=== PATIENT | male | born 1950 | race Caucasian/White ===

== ENCOUNTER → 2018-10-19 15:39 | Outpatient (CLI) | payer OTHER, SELFPAY ==
[2018-10-19 16:24] LABS: BUN Creatinine Ratio 22.5 (6-22); Blood Urea Nitrogen 18 mg/dL (9-20); Calcium 9.7 mg/dL (8.4-10.2); Carbon Dioxide 26 mmol/L (22-32); Chloride 101 mmol/L (98-107); Estimated Glomerular Filt Rate > 60.0 mL/min (>60); Glucose 100 mg/dL (80-110); HEMOLYSIS < 15 (0-50); Potassium 4.4 mmol/L (3.4-5.1); Sodium 138 mmol/L (137-145)
[2018-10-19 16:27] LABS: Hematocrit 39.6 % (41-53); Hemoglobin 13.6 g/dL (13.5-17.5); Mean Corpuscular HGB Conc 34.3 % (30-36); Mean Corpuscular Hemoglobin 30.5 PG (26-34); Mean Corpuscular Volume 88.9 fL (80-100); Platelet Count 307 X10^3/uL (150-400); Red Blood Cell Count 4.45 X10^6/uL (4.5-5.9); Red Cell Distribution Width 13.1 % (11.6-14.8)
[2018-10-19 16:41] LABS: Vitamin D 25 Hydroxy (D3) 17.9 ng/mL (30.0-100.0)
[2018-10-19 16:55] LABS: Prostate Specific Antigen 1.17 ng/mL (0.10-4.00)
== END ==
PROVIDERS: Family Provider Family Medicine; PCP Student in an Organized Health Care Education/Training Program; Visit Provider Student in an Organized Health Care Education/Training Program
DX: R97.20 Elevated prostate specific antigen [PSA] (principal); I10 Essential (primary) hypertension; E55.9 Vitamin D deficiency, unspecified; D64.9 Anemia, unspecified
CPT/HCPCS: 36415; 80048; 82306; 84153; 85027

== ENCOUNTER → 2018-10-24 08:20 | Outpatient (CLI) | payer OTHER, SELFPAY ==
--- NOTE | 2018-10-24 08:25 | DI.US.S_ITS ---
PROCEDURE: US ABD AORTA ANEURYSM SCREEN INDICATIONS: ABDOMINAL AORTIC ANEURYSM SCREENING IN FORMER SMOKER TECHNIQUE: Real time scanning was performed of the aorta and iliac arteries, with image documentation. COMPARISON: None. FINDINGS: Aorta: Proximal aortic diameter measures 2.2 cm. Mid-aorta measures 1.9 cm. Distal aortic diameter is 2.0 cm. Iliac arteries: Right common iliac artery measures 1.2 cm. Left common iliac artery measures 1.2 cm. IMPRESSION: Normal examination. No aneurysm found. Dictated by: Jonas Mahoney M.D. on 10/24/2018 at 8:49 Approved by: Jonas Mahoney M.D. on 10/24/2018 at 8:50
== END ==
PROVIDERS: PCP Student in an Organized Health Care Education/Training Program; Visit Provider Student in an Organized Health Care Education/Training Program
DX: Z13.6 Encounter for screening for cardiovascular disorders (principal); Z87.891 Personal history of nicotine dependence
CPT/HCPCS: 76706

== ENCOUNTER → 2019-07-15 07:52 | Outpatient (CLI) | payer OTHER, SELFPAY ==
--- NOTE | 2019-07-15 07:53 | DI.US.S_ITS ---
PROCEDURE: US CAROTID DOPPLER BI INDICATIONS: ameurosis fugax TECHNIQUE: Color and pulse Doppler interrogation was performed of both carotid systems, with image documentation and velocity measurements. COMPARISON: None. FINDINGS: Stenosis calculations are based on SRU (Society of Radi[employer] in Ultras[employer]) criteria. Right side: Brachial blood pressure: 153/82 mm Hg. Common carotid artery peak systolic velocity: 115 cm/sec. Internal carotid artery peak systolic velocity: 106 cm/sec. Internal carotid artery end diastolic velocity: 36 cm/sec. External carotid artery peak systolic velocity: 102 cm/sec. ICA/CCA peak systolic ratio: 0.9. Perry scale imaging description: Normal Percent internal carotid artery stenosis: No significant stenoses. Vertebral artery: Flow direction is antegrade. Left side: Brachial blood pressure: 142/71 mm Hg. Common carotid artery peak systolic velocity: 101 cm/sec. Internal carotid artery peak systolic velocity: 80 cm/sec. Internal carotid artery end diastolic velocity: 32 cm/sec. External carotid artery peak systolic velocity: 82 cm/sec. ICA/CCA peak systolic ratio: 0.8. Perry scale imaging description: Normal Percent internal carotid artery stenosis: No significant stenoses. Vertebral artery: Flow direction is antegrade. Incidentally noted is a predominance cystic mass in the left thyroid lobe measuring 1.3 x 0.7 x 0.9 cm. IMPRESSION: 1. No significant internal carotid artery stenosis. 2. A complex cyst in the left thyroid measuring 1.3 x 0.7 x 0.9 cm. Dictated by: Gilmar Mercado M.D. on 07/15/2019 at 13:58 Approved by: Gilmar Mercado M.D. on 07/15/2019 at 14:03
== END ==
PROVIDERS: PCP Student in an Organized Health Care Education/Training Program; Visit Provider Student in an Organized Health Care Education/Training Program
DX: G45.3 Amaurosis fugax (principal); E04.1 Nontoxic single thyroid nodule
CPT/HCPCS: 93880

== ENCOUNTER 2019-07-26 12:24 | Emergency (ER) | payer OTHER, SELFPAY ==
[2019-07-26] VITALS (8 sets, daily range): BP systolic 124–158; BP diastolic 71–81; PULSE 72–95; RESP 14–18; TEMP 36.4; O2SAT 97–99
--- NOTE | 2019-07-26 12:31 | DI.CT.S_ITS ---
PROCEDURE: CT HEAD/BRAIN WO CON INDICATIONS: Progressive forgetfullness, change in gait, TAI x15 days TECHNIQUE: Noncontrast 4.5 mm thick angled axial sections acquired from the foramen magnum to the vertex, with coronal and sagittal reformats. For radiation dose reduction, the following was used: automated exposure control, adjustment of mA and/or kV according to patient size. COMPARISON: [facility], , CAROTID DOPPLER BI, 07/15/2019, 8:25. FINDINGS: Image quality: Excellent. CSF spaces: There is moderate to prominent hydrocephalus. Basal cisterns are patent. No extra-axial fluid collections. Brain: There is a poorly defined mass seen, which is centered within the posterior right frontal lobe, which measures approximately 4 cm transversely by 2.9 cm AP, with a craniocaudal extent of 3 cm. Surrounding brain edema can be seen. There is cerebral volume loss for age, with resultant ventricular and sulcal prominence. There are periventricular and deep white matter chronic small vessel ischemic changes. There is intracranial internal carotid artery atherosclerosis. Skull and face: Calvarium and visualized facial bones appear intact, without suspicious lesions. Sinuses: Visualized sinuses and mastoids are clear. IMPRESSION: There is a 4 cm mass centered within the posterior right frontal lobe near the midline, with associated brain edema. There is moderate to prominent hydrocephalus. An urgent neurosurgical consultation is recommended. Note: Findings and recommendations discussed by telephone with NARENDRA Hoover at 12:48 PM Hanson time on July 26, 2019. Dictated by: Ralph Frank M.D. on 07/26/2019 at 11:44 Approved by: Ralph Frank M.D. on 07/26/2019 at 11:49
--- NOTE | 2019-07-26 12:49 | ED_ITS ---
HPI - Neuro Symptoms/Deficit <Will Betancourt NARENDRA - Last Filed: 07/26/19 12:50> General Chief Complaint: Neuro Symptoms/Deficit Stated Complaint: headaches,cannot walk steady,changes in speech Time Seen by Provider: 07/26/19 12:49 Source: patient and family Mode of arrival: Ambulatory History of Present Illness On Anticoagulants: No Related Data Home Medications Medication Instructions Recorded Confirmed lisinopril 10 mg PO DAILY 07/26/19 07/26/19 Previous Rx's Medication Instructions Recorded mometasone 0.1 % topical cream 1 applictn TOP DAILY 21 Days #45 07/12/19 gram dexamethasone 4 mg PO QID #20 tab 07/26/19 Allergies Allergy/AdvReac Type Severity Reaction Status Date / Time cat dander [CAT DANDER] Allergy Intermediate Verified 07/26/19 11:40 <Mirta Magaña DO - Last Filed: 07/26/19 18:36> General Source: patient and family Mode of arrival: Ambulatory Limitations: no limitations History of Present Illness HPI Narrative: This is a 68-year-old who comes to the emergency department with 2-3 weeks of headaches that are worse when he stands up. Patient and family have noted that his gait has got sort of wider and more sharp fully. They've also noticed that he has to speak or starch for his words and be more deliberate in his speech. Patient states that he has noticed sometimes some scintillating changes in his vision maybe like an aura almost is how he describes it with his headaches. He has not noticed any loss of vision. Patient has intermittently had nausea particularly with severe headache but no vomiting. He has not appreciated any numbness or tingling. 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 They've noticed it more with his gait in his family has also noticed. Patient has not any chest pain or shortness of breath. No loss of bowel or bladder control. Patient does take medication for hypertension but no other major medical issues. His primary care is Dr. Minor. Patient is accompanied by his daughters and . One of his daughters is an orthopedic surgeon. <DO Shira Collins Last Filed: 07/26/19 18:36> Review of Systems ROS Unobtainable: All systems reviewed & are unremarkable except as noted in HPI and below Patient History [facility] - Last Filed: 07/26/19 12:50> Medical History Colon polyps (Chronic) Hypertension (Chronic) Seasonal allergies (Chronic) Tinnitus (Chronic) Family History Sister Age: 75 Early onset Alzheimer's dementia without behavioral disturbance Father No problems noted. Grandfather No problems noted. Grandmother Diabetes mellitus Mother Cancer Grandfather No problems noted. Grandmother No problems noted. Social History Smoking Status: Never smoker alcohol intake: current substance use type: does not use Smoking Status: Never smoker alcohol intake frequency: a few times a month Alcohol type: wine Substance Use Type: does not use Exam <[facility] - Last Filed: 07/26/19 12:50> Initial Vital Signs Initial Vital Signs: Vital Signs Temperature 97.6 F 07/26/19 12:25 Pulse Rate 88 07/26/19 12:25 Respiratory Rate 18 07/26/19 12:25 Blood Pressure 158/75 H 07/26/19 12:25 Pulse Oximetry 98 07/26/19 12:25 <Mirta Magaña DO - Last Filed: 07/26/19 18:36> Narrative Exam Narrative: GEN: well nourished, well appearing male, alert and oriented x 3, patient appears to be in mild distress. HEENT: Atraumatic, pupils are equal round reactive to light, extraocular movements are intact, nares are clear, TMs are clear with no fluid, there is no conjunctival pallor. Throat is clear without any exudates, erythema, tonsillar enlargement or uvular deviation HEART: Regular rate and rhythm without murmur, clicks, rubs. LUNGS:Lungs clear to auscultation, no wheezes, rales, crackles, chest moves symmetrically ABD:bowel sounds normal, soft, non-tender, no guarding, rebound, rigidity, no masses noted, no hepatosplenomegaly :No CVA tenderness. MSCL: Non-tender, no muscle atrophy, muscles strength 5/5 upper and lower extremities, full range of motion. NEURO:CN 2-12 intact, sensation normal, reflexes 2/4 upper and lower extremities. finger nose finger test normal, heel murphy test normal. SKIN: No rashes. No skin changes. Initial Vital Signs Initial Vital Signs: Vital Signs Temperature 97.6 F 07/26/19 12:25 Pulse Rate 88 07/26/19 12:25 Respiratory Rate 18 07/26/19 12:25 Blood Pressure 158/75 H 07/26/19 12:25 Pulse Oximetry 98 07/26/19 12:25 Course <ANOOP HooverP - Last Filed: 07/26/19 12:50> Course Course Narrative: Dr. Frank, radiologist, called to inform the CT finding of b rain mass and prominent hydrocephalus. Neurosurgeon evaluation in needed. Orders Ordered: ED Orders 07/26/19 12:31 CT head/brain wo con Stat 07/26/19 13:12 Complete Blood Count AUTO DIFF Stat Comprehensive Metabolic Panel Stat Lipase Stat Partial Thromboplastin Time Stat Prothrombin Time INR Stat 07/26/19 13:29 MR head/brain wo/w con Stat 07/26/19 13:46 Urine Microscopic Stat Dexamethasone (Decadron) 4 mg IV Q6H SMITA Discontinued Medications Dexamethasone (Decadron) 10 mg IV NOW ONE Stop: 07/26/19 13:41 Last Admin: 07/26/19 13:53 Dose: 10 mg Documented by: BONILLA Sodium Chloride (Normal Saline 0.9%) 1,000 mls @ 1,000 mls/hr IV BOLUS ONE Stop: 07/26/19 14:04 Last Infusion: 07/26/19 16:28 Dose: 250 mls/hr Documented by: Infusion: 07/26/19 15:00 Dose: 0 mls/hr Documented by: Admin: 07/26/19 13:14 Dose: 250 mls/hr Documented by: BONILLA Levetiracetam 1,000 mg/ Sodium (Chloride) 110 mls @ 440 mls/hr IV NOW ONE Stop: 07/26/19 17:49 Last Admin: 07/26/19 18:12 Dose: 440 mls/hr Documented by: BONILLA Morphine Sulfate (Morphine) 2 mg IV NOW ONE Stop: 07/26/19 16:19 Last Admin: 07/26/19 16:27 Dose: 2 mg Documented by: BONILLA Ondansetron HCl (Zofran) 4 mg IV NOW ONE Stop: 07/26/19 13:06 Last Admin: 07/26/19 13:14 Dose: 4 mg Documented by: BONILLA Ondansetron HCl (Zofran) 4 mg IV NOW ONE Stop: 07/26/19 16:19 Last Admin: 07/26/19 16:27 Dose: 4 mg Documented by: BONILLA Vital Signs Vital signs: Vital Signs - 8 hr 07/26/19 12:25 07/26/19 13:00 07/26/19 13:30 Temperature 97.6 F Pulse Rate 88 72 95 H Respiratory Rate 18 18 18 Blood Pressure 158/75 H Blood Pressure [Right Arm] 143/71 H 147/71 H Pulse Oximetry 98 98 98 07/26/19 14:07 07/26/19 15:32 07/26/19 16:30 Temperature Pulse Rate 78 78 87 Respiratory Rate 17 18 18 Blood Pressure Blood Pressure [Right Arm] 134/81 124/78 148/75 H Pulse Oximetry 99 98 97 07/26/19 17:00 07/26/19 18:16 Temperature Pulse Rate 91 H 80 Respiratory Rate 18 14 Blood Pressure Blood Pressure [Right Arm] 153/71 H 128/78 Pulse Oximetry 97 99 <Mirta Magaña, - Last Filed: 07/26/19 18:36> Orders Ordered: ED Orders 07/26/19 12:31 CT head/brain wo con Stat 07/26/19 13:12 Complete Blood Count AUTO DIFF Stat Comprehensive Metabolic Panel Stat Lipase Stat Partial Thromboplastin Time Stat Prothrombin Time INR Stat 07/26/19 13:29 MR head/brain wo/w con Stat 07/26/19 13:46 Urine Microscopic Stat Dexamethasone (Decadron) 4 mg IV Q6H SMITA Discontinued Medications Dexamethasone (Decadron) 10 mg IV NOW ONE Stop: 07/26/19 13:41 Last Admin: 07/26/19 13:53 Dose: 10 mg Documented by: BONILLA Sodium Chloride (Normal Saline 0.9%) 1,000 mls @ 1,000 mls/hr IV BOLUS ONE Stop: 07/26/19 14:04 Last Infusion: 07/26/19 16:28 Dose: 250 mls/hr Documented by: Infusion: 07/26/19 15:00 Dose: 0 mls/hr Documented by: Admin: 07/26/19 13:14 Dose: 250 mls/hr Documented by: BONILLA Levetiracetam 1,000 mg/ Sodium (Chloride) 110 mls @ 440 mls/hr IV NOW ONE Stop: 07/26/19 17:49 Last Admin: 07/26/19 18:12 Dose: 440 mls/hr Documented by: BONILLA Morphine Sulfate (Morphine) 2 mg IV NOW ONE Stop: 07/26/19 16:19 Last Admin: 07/26/19 16:27 Dose: 2 mg Documented by: BONILLA Ondansetron HCl (Zofran) 4 mg IV NOW ONE Stop: 07/26/19 13:06 Last Admin: 07/26/19 13:14 Dose: 4 mg Documented by: BONILLA Ondansetron HCl (Zofran) 4 mg IV NOW ONE Stop: 07/26/19 16:19 Last Admin: 07/26/19 16:27 Dose: 4 mg Documented by: BONILLA Vital Signs Vital signs: Vital Signs - 8 hr 07/26/19 12:25 07/26/19 13:00 07/26/19 13:30 Temperature 97.6 F Pulse Rate 88 72 95 H Respiratory Rate 18 18 18 Blood Pressure 158/75 H Blood Pressure [Right Arm] 143/71 H 147/71 H Pulse Oximetry 98 98 98 07/26/19 14:07 07/26/19 15:32 07/26/19 16:30 Temperature Pulse Rate 78 78 87 Respiratory Rate 17 18 18 Blood Pressure Blood Pressure [Right Arm] 134/81 124/78 148/75 H Pulse Oximetry 99 98 97 07/26/19 17:00 07/26/19 18:16 Temperature Pulse Rate 91 H 80 Respiratory Rate 18 14 Blood Pressure Blood Pressure [Right Arm] 153/71 H 128/78 Pulse Oximetry 97 99 MDM - Neuro Symptoms/Deficit <NARENDRA Hoover - Last Filed: 07/26/19 12:50> Lab Data Result diagrams: 07/26/19 13:12 07/26/19 13:12 Labs: Lab Results 07/26/19 07/26/19 07/26/19 Range/Units 13:12 13:12 13:12 WBC 7.7 (4.5-11.0) X10^3/uL RBC 4.18 L (4.5-5.9) X10^6/uL Hgb 12.7 L (13.5-17.5) g/dL Hct 37.1 L (41-53) % MCV 88.7 (80-100) fL MCH 30.4 (26-34) PG MCHC 34.3 (30-36) % RDW 12.8 (11.6-14.8) % Plt Count 332 (150-400) X10^3/uL Neut % (Auto) 73.3 (50-75) % Lymph % (Auto) 17.6 L (25-40) % [place] % (Auto) 6.7 (3-14) % Eos % (Auto) 1.8 L (2-4) % Baso % (Auto) 0.6 (0-2) % Neut # (Auto) 5600 (3900-2380) /uL Lymph # (Auto) 1300 (2343-6297) /uL [place] # (Auto) 500 (0-900) /uL Eos # (Auto) 100 (0-450) /uL Baso # (Auto) 0 (0-100) /uL PT 12.3 (10.1-12.7) SECONDS INR 1.1 (0.9-1.3) APTT 33 (26.4-36.2) SECONDS Sodium 141 (137-145) mmol/L Potassium 4.8 (3.4-5.1) mmol/L Chloride 103 (98-107) mmol/L Carbon Dioxide 28 (22-32) mmol/L BUN 23 H (9-20) mg/dL Creatinine 0.80 (0.66-1.25) mg/dL Estimated GFR > 60.0 (>60) mL/min BUN/Creatinine Ratio 28.8 H (6-22) Glucose 111 H (80-110) mg/dL Calcium 10.0 (8.4-10.2) mg/dL Total Bilirubin 0.6 (0.2-1.3) mg/dL AST 26 (17-59) IU/L ALT 17 (<50) IU/L Alkaline Phosphatase 73 (38-126) U/L Total Protein 7.3 (6.3-8.2) g/dL Albumin 4.3 (3.5-5.0) g/dL Globulin 3.0 (1.7-4.1) g/dL Albumin/Globulin Ratio 1.4 (1.0-2.8) Lipase 47 (23-300) U/L Urine RBC (0-5/HPF) Urine WBC (0-5/HPF) Ur Squamous Epith Cells (0-5/HPF) Urine Bacteria (None) Urine Mucus (Negative) Ur Culture Indicated? 07/26/19 Range/Units 13:46 WBC (4.5-11.0) X10^3/uL RBC (4.5-5.9) X10^6/uL Hgb (13.5-17.5) g/dL Hct (41-53) % MCV (80-100) fL MCH (26-34) PG MCHC (30-36) % RDW (11.6-14.8) % Plt Count (150-400) X10^3/uL Neut % (Auto) (50-75) % Lymph % (Auto) (25-40) % [place] % (Auto) (3-14) % Eos % (Auto) (2-4) % Baso % (Auto) (0-2) % Neut # (Auto) (6309-9237) /uL Lymph # (Auto) (4678-1950) /uL [place] # (Auto) (0-900) /uL Eos # (Auto) (0-450) /uL Baso # (Auto) (0-100) /uL PT (10.1-12.7) SECONDS INR (0.9-1.3) APTT (26.4-36.2) SECONDS Sodium (137-145) mmol/L Potassium (3.4-5.1) mmol/L Chloride (98-107) mmol/L Carbon Dioxide (22-32) mmol/L BUN (9-20) mg/dL Creatinine (0.66-1.25) mg/dL Estimated GFR (>60) mL/min BUN/Creatinine Ratio (6-22) Glucose (80-110) mg/dL Calcium (8.4-10.2) mg/dL Total Bilirubin (0.2-1.3) mg/dL AST (17-59) IU/L ALT (<50) IU/L Alkaline Phosphatase (38-126) U/L Total Protein (6.3-8.2) g/dL Albumin (3.5-5.0) g/dL Globulin (1.7-4.1) g/dL Albumin/Globulin Ratio (1.0-2.8) Lipase (23-300) U/L Urine RBC 1-5/hpf (0-5/HPF) Urine WBC 0-1/hpf (0-5/HPF) Ur Squamous Epith Cells 1-5 /hpf (0-5/HPF) Urine Bacteria None seen (None) Urine Mucus 1+ H (Negative) Ur Culture Indicated? Cult not indicated Urine Dip Bedside Urine Glucose Negative Bedside Urine Bilirubin + 1 Bedside Urine Ketone - Negative Urine Specific [place] 1.020 Bedside Urine Occult Blood - Negative Bedside Urine pH 6.0 Bedside Urine Protein +/- 15 Bedside Urine Urobilinogen +/- 1mg Bedside Urine Nitrite - Negative Bedside Urine Leukocytes - Negative Esterase <Mirta Magaña, DO - Last Filed: 07/26/19 18:36> Lab Data Attestation: I reviewed the patient's lab results. Labs: Lab Results 07/26/19 07/26/19 07/26/19 Range/Units 13:12 13:12 13:12 WBC 7.7 (4.5-11.0) X10^3/uL RBC 4.18 L (4.5-5.9) X10^6/uL Hgb 12.7 L (13.5-17.5) g/dL Hct 37.1 L (41-53) % MCV 88.7 (80-100) fL MCH 30.4 (26-34) PG MCHC 34.3 (30-36) % RDW 12.8 (11.6-14.8) % Plt Count 332 (150-400) X10^3/uL Neut % (Auto) 73.3 (50-75) % Lymph % (Auto) 17.6 L (25-40) % [place] % (Auto) 6.7 (3-14) % Eos % (Auto) 1.8 L (2-4) % Baso % (Auto) 0.6 (0-2) % Neut # (Auto) 5600 (1364-3591) /uL Lymph # (Auto) 1300 (5923-4982) /uL [place] # (Auto) 500 (0-900) /uL Eos # (Auto) 100 (0-450) /uL Baso # (Auto) 0 (0-100) /uL PT 12.3 (10.1-12.7) SECONDS INR 1.1 (0.9-1.3) APTT 33 (26.4-36.2) SECONDS Sodium 141 (137-145) mmol/L Potassium 4.8 (3.4-5.1) mmol/L Chloride 103 (98-107) mmol/L Carbon Dioxide 28 (22-32) mmol/L BUN 23 H (9-20) mg/dL Creatinine 0.80 (0.66-1.25) mg/dL Estimated GFR > 60.0 (>60) mL/min BUN/Creatinine Ratio 28.8 H (6-22) Glucose 111 H (80-110) mg/dL Calcium 10.0 (8.4-10.2) mg/dL Total Bilirubin 0.6 (0.2-1.3) mg/dL AST 26 (17-59) IU/L ALT 17 (<50) IU/L Alkaline Phosphatase 73 (38-126) U/L Total Protein 7.3 (6.3-8.2) g/dL Albumin 4.3 (3.5-5.0) g/dL Globulin 3.0 (1.7-4.1) g/dL Albumin/Globulin Ratio 1.4 (1.0-2.8) Lipase 47 (23-300) U/L Urine RBC (0-5/HPF) Urine WBC (0-5/HPF) Ur Squamous Epith Cells (0-5/HPF) Urine Bacteria (None) Urine Mucus (Negative) Ur Culture Indicated? 07/26/19 Range/Units 13:46 WBC (4.5-11.0) X10^3/uL RBC (4.5-5.9) X10^6/uL Hgb (13.5-17.5) g/dL Hct (41-53) % MCV (80-100) fL MCH (26-34) PG MCHC (30-36) % RDW (11.6-14.8) % Plt Count (150-400) X10^3/uL Neut % (Auto) (50-75) % Lymph % (Auto) (25-40) % [place] % (Auto) (3-14) % Eos % (Auto) (2-4) % Baso % (Auto) (0-2) % Neut # (Auto) (4854-3363) /uL Lymph # (Auto) (0462-3210) /uL [place] # (Auto) (0-900) /uL Eos # (Auto) (0-450) /uL Baso # (Auto) (0-100) /uL PT (10.1-12.7) SECONDS INR (0.9-1.3) APTT (26.4-36.2) SECONDS Sodium (137-145) mmol/L Potassium (3.4-5.1) mmol/L Chloride (98-107) mmol/L Carbon Dioxide (22-32) mmol/L BUN (9-20) mg/dL Creatinine (0.66-1.25) mg/dL Estimated GFR (>60) mL/min BUN/Creatinine Ratio (6-22) Glucose (80-110) mg/dL Calcium (8.4-10.2) mg/dL Total Bilirubin (0.2-1.3) mg/dL AST (17-59) IU/L ALT (<50) IU/L Alkaline Phosphatase (38-126) U/L Total Protein (6.3-8.2) g/dL Albumin (3.5-5.0) g/dL Globulin (1.7-4.1) g/dL Albumin/Globulin Ratio (1.0-2.8) Lipase (23-300) U/L Urine RBC 1-5/hpf (0-5/HPF) Urine WBC 0-1/hpf (0-5/HPF) Ur Squamous Epith Cells 1-5 /hpf (0-5/HPF) Urine Bacteria None seen (None) Urine Mucus 1+ H (Negative) Ur Culture Indicated? Cult not indicated Urine Dip Bedside Urine Glucose Negative Bedside Urine Bilirubin + 1 Bedside Urine Ketone - Negative Urine Specific [place] 1.020 Bedside Urine Occult Blood - Negative Bedside Urine pH 6.0 Bedside Urine Protein +/- 15 Bedside Urine Urobilinogen +/- 1mg Bedside Urine Nitrite - Negative Bedside Urine Leukocytes - Negative Esterase Imaging Data CT scan - head: Radiologist's impression: Norm Mueller 68 M [address] [address] [address] Scan Report Signed Patient: Norm Mueller TMR#: [id number] : [id number]:[id number] Age/Sex: 68 / MDate of Service: 07/26/19 Loc: ED Accession Number: [id number] Procedure: CT head/brain wo con Ordering Provider: Will Betancourt PROCEDURE: CT HEAD/BRAIN WO CON INDICATIONS: Progressive forgetfullness, change in gait, TAI x15 days TECHNIQUE: Noncontrast 4.5 mm thick angled axial sections acquired from the foramen magnum to the vertex, with coronal and sagittal reformats. For radiation dose reduction, the following was used: automated exposure control, adjustment of mA and/or kV according to patient size. COMPARISON: [facility], , CAROTID DOPPLER BI, 07/15/2019, 8:25. FINDINGS: Image quality: Excellent. CSF spaces: There is moderate to prominent hydrocephalus. Basal cisterns are patent. No extra-axial fluid collections. Brain: There is a poorly defined mass seen, which is centered within the posterior right frontal lobe, which measures approximately 4 cm transversely by 2.9 cm AP, with a craniocaudal extent of 3 cm. Surrounding brain edema can be seen. There is cerebral volume loss for age, with resultant ventricular and sulcal prominence. There are periventricular and deep white matter chronic small vessel ischemic changes. There is intracranial internal carotid artery atherosclerosis. Skull and face: Calvarium and visualized facial bones appear intact, without suspicious lesions. Sinuses: Visualized sinuses and mastoids are clear. IMPRESSION: There is a 4 cm mass centered within the posterior right frontal lobe near the midline, with associated brain edema. There is moderate to prominent hydrocephalus. An urgent neurosurgical consultation is recommended. Note: Findings and recommendations discussed by telephone with NARENDRA Hoover at 12:48 PM [place] time on July 26, 2019. Dictated by: Ralph Frank M.D. on 07/26/2019 at 11:44 Approved by: Ralph Frank M.D. on 07/26/2019 at 11:49 MRI brain: Radiologist's impression: Norm Mueller 68 M [address] [address] Magnetic Resonance Report Signed Patient: Norm Mueller TMR#: [id number] : [id number]:[id number] Age/Sex: 68 / MDate of Service: 07/26/19 Loc: ED Accession Number: [id number] Procedure: MR head/brain wo/w con Ordering Provider: Mirta Magaña D.O. PROCEDURE: MR HEAD/BRAIN WO/W CON INDICATIONS: mass in brain, symptoms for several weeks TECHNIQUE: Noncontrast axial T1 spin echo, axial T2 fast spin echo, sagittal and axial FLAIR, coronal T2 fast spin echo, axial gradient echo, axial diffusion and ADC through the brain. After the administration of contrast, axial and coronal 3D VIBE or T1 spin echo with fat saturation through the brain. COMPARISON: [facility], CT, CT HEAD/BRAIN WO CON, 07/26/2019, 12:33. FINDINGS: Image quality: Excellent. CSF Spaces: Basal cisterns are patent. No extra-axial fluid collections. Ventricles are mildly enlarged in size and shape, possibly due to the mass effect shifting the posterior aspect of the corpus callosum with mass effect impinging on the superior margin of the cerebral aqueduct. Brain: No midline shift. No intracranial bleeds. There is a malignant appearing mass lesion centered to the right of midline but crossing the midline involving the genuine and inferior margin of the corpus callosum. This mass has significant adjacent vasogenic edema, and the mass itself is estimated to measure approximately 3.1 x 2.8 cm in maximal craniocaudad and AP dimensions, with the transverse dimension of 3.7 cm. No additional lesion is found, and this represents the abnormality seen on CT scanning earlier today No additional area of abnormal intracranial enhancement. The brainstem appears normal. Diffusion-weighted images demonstrate no acute ischemic insults. No chronic ischemic insults. Normal intravascular flow voids are present. Skull and face: Calvarial marrow is normal in signal. Orbits appear normal. Sinuses: Sinuses and mastoids appear clear. IMPRESSION: Moderate-sized malignant appearing heterogeneously enhancing mass centered at and to the right of midline involving the posterior genu and inferior border of the corpus callosum. Mass effect of this structure and adjacent vasogenic edema impinges against the tectal plate and produces narrowing of the superior margin of the cerebral aqueduct. Secondary symmetric bilateral hydrocephalus appears present involving the lateral ventricles and the third ventricle to a mild degree. No transependymal flow of CSF is associated. Overall the appearance is most likely a glioblastoma. Dictated by: Jonas Mahoney M.D. on 07/26/2019 at 15:38 Approved by: Jonas Mahoney M.D. on 07/26/2019 at 15:48 [facility] Narrative Medical decision making narrative: Spoke with Dr. Morales from oncology. He recommends transfer to either [facility] or [facility]. he feels patient would likely benefit from debulking surgery and then being set up with radiation and treatment. He does recommend dexamethasone which patient has already received does not recommend any seizure prophylaxis at this point but it is typically started after surgery for patients with glioblastoma. Discussed with patient the family, discussed MRI as well as head CT results and lab findings and that his CT is suspicous for glioblastoma. Daughter is an orthopedic surgeon and requested images on disk for review at later time with colleagues. Patient family is okay with this. Spoke with [facility] and [facility] did not have beds. We did discuss Oncology is recommendations. Patient has received dexamethasone IV 10 mg with plan for Q 6 hours dexamethasone. [place] does have beds available and Dr. Cardenas is the accepting hospitalist. They did discuss with Neurosurgery and they asked to give 1 g of Keppra prophylactically. They also asked that we have images sent via disc as there's been some difficulty picking up the images. Patient was loaded with Keppra per neurosurgery recommendations. Patient and family would like to consider there options before transfer and have elected to go home at this time. Patient family would like to return home at this time and to make further de cisions about care. They are aware of oncology recommendations and feel they may wish to pursue different options. Given prescription for dexamethasone po Q 6 hours for edema. They plan to return to ER if any new changes in symptoms. Recommended that they can return at any time for evaluation, referral for oncology. They are aware of risks at this time. Patient was given prepack of norco and zofran. Two daughters at bedside along with . Discharge Plan Departure Patient Disposition: Home Clinical Impression: Brain mass, Vasogenic cerebral edema Activity Restrictions/Additional Instructions: You may return at any time for recheck for your symptoms. I recommend that you see oncology as soon as possible below is referral. Take dexamethasone every 6 hours for swelling. Your prescription was sent to [facility] in [place]. You have received an initial dose of Keppra 1 gram IV. You may take pain medication as prescribed, this medication can make you sleepy do not drive, perform hazardous activities or make any major decisions while taking it. I would recommend taking Zofran 1 tablet 20 minutes prior to ingestion of narcotic pain medicine. Return to the ER for new or worsening symptoms, new confusion, new weakness, numbness, tingling, new vision or speech persistent vomiting, increasingly severe headaches, lethargy, or other new or concerning symptoms. Prescriptions: New dexamethasone 4 mg tablet 4 mg PO QID Qty: 20 RF: 0 No Action mometasone 0.1 % cream 1 applictn TOP DAILY 21 Days Qty: 45 RF: 0 lisinopril 10 mg tablet 10 mg PO DAILY RF: 0 Referrals: Marlon Minor MD [Primary Care Provider] - Stacia Gutierres MD [Physician] -
[2019-07-26] MEDS: ONDANSETRON 4 MG/2 ML INJ IV ×2 (13:14→16:27)
[2019-07-26] MEDS: SODIUM CHLORIDE 0.9% 1,000 ML 250 ML IV (13:14)
--- NOTE | 2019-07-26 13:25 | PC.NURSE ---
Pt w/ gradual onset over two weeks of generalized weakness w/o focus, short term memory problems (pt was fully a/o w/ no problems 2 weeks ago.) c/o headache x 2 weeks that is better laying flat. Has been nauseas w / decreased po intake. Appears dry w/ dry mucus membranes and flat veins. Family notes difficulty in following directions. Very supportive family. Two daughters and .
[2019-07-26 13:27] LABS: INR 1.1 (0.9-1.3); Prothrombin Time 12.3 SECONDS (10.1-12.7)
[2019-07-26 13:29] LABS: PTT Partial Thromboplastin Tim 33 SECONDS (26.4-36.2)
--- NOTE | 2019-07-26 13:29 | DI.MRI.S_ITS ---
PROCEDURE: MR HEAD/BRAIN WO/W CON INDICATIONS: mass in brain, symptoms for several weeks TECHNIQUE: Noncontrast axial T1 spin echo, axial T2 fast spin echo, sagittal and axial FLAIR, coronal T2 fast spin echo, axial gradient echo, axial diffusion and ADC through the brain. After the administration of contrast, axial and coronal 3D VIBE or T1 spin echo with fat saturation through the brain. COMPARISON: [facility], CT, CT HEAD/BRAIN WO CON, 07/26/2019, 12:33. FINDINGS: Image quality: Excellent. CSF Spaces: Basal cisterns are patent. No extra-axial fluid collections. Ventricles are mildly enlarged in size and shape, possibly due to the mass effect shifting the posterior aspect of the corpus callosum with mass effect impinging on the superior margin of the cerebral aqueduct. Brain: No midline shift. No intracranial bleeds. There is a malignant appearing mass lesion centered to the right of midline but crossing the midline involving the genuine and inferior margin of the corpus callosum. This mass has significant adjacent vasogenic edema, and the mass itself is estimated to measure approximately 3.1 x 2.8 cm in maximal craniocaudad and AP dimensions, with the transverse dimension of 3.7 cm. No additional lesion is found, and this represents the abnormality seen on CT scanning earlier today No additional area of abnormal intracranial enhancement. The brainstem appears normal. Diffusion-weighted images demonstrate no acute ischemic insults. No chronic ischemic insults. Normal intravascular flow voids are present. Skull and face: Calvarial marrow is normal in signal. Orbits appear normal. Sinuses: Sinuses and mastoids appear clear. IMPRESSION: Moderate-sized malignant appearing heterogeneously enhancing mass centered at and to the right of midline involving the posterior genu and inferior border of the corpus callosum. Mass effect of this structure and adjacent vasogenic edema impinges against the tectal plate and produces narrowing of the superior margin of the cerebral aqueduct. Secondary symmetric bilateral hydrocephalus appears present involving the lateral ventricles and the third ventricle to a mild degree. No transependymal flow of CSF is associated. Overall the appearance is most likely a glioblastoma. Dictated by: Jonas Mahoney M.D. on 07/26/2019 at 15:38 Approved by: Jonas Mahoney M.D. on 07/26/2019 at 15:48
[2019-07-26 13:35] LABS: Add Manual Diff / Slide Review NO; Basophils Absolute Auto 0 /uL (0-100); Basophils Percent Auto 0.6 % (0-2); Eosinophils Absolute Auto 100 /uL (0-450); Eosinophils Percent Auto 1.8 % (2-4); Hematocrit 37.1 % (41-53); Hemoglobin 12.7 g/dL (13.5-17.5); Lymphocytes Absolute Auto 1300 /uL (1100-4500); Lymphocytes Percent Auto 17.6 % (25-40); Mean Corpuscular HGB Conc 34.3 % (30-36); Mean Corpuscular Hemoglobin 30.4 PG (26-34); Mean Corpuscular Volume 88.7 fL (80-100); Monocytes Absolute Auto 500 /uL (0-900); Monocytes Percent Auto 6.7 % (3-14); Neutrophils Absolute Auto 5600 /uL (1500-7000); Neutrophils Percent Auto 73.3 % (50-75); Platelet Count 332 X10^3/uL (150-400); Red Blood Cell Count 4.18 X10^6/uL (4.5-5.9); Red Cell Distribution Width 12.8 % (11.6-14.8); White Blood Cell Count 7.7 X10^3/uL (4.5-11.0)
[2019-07-26 13:41] LABS: Alanine Aminotransferase 17 IU/L (<50); Albumin 4.3 g/dL (3.5-5.0); Albumin Globulin Ratio 1.4 (1.0-2.8); Alkaline Phosphatase 73 U/L (38-126); Aspartate Aminotransferase 26 IU/L (17-59); BUN Creatinine Ratio 28.8 (6-22); Bilirubin Total 0.6 mg/dL (0.2-1.3); Blood Urea Nitrogen 23 mg/dL (9-20); Carbon Dioxide 28 mmol/L (22-32); Chloride 103 mmol/L (98-107); Estimated Glomerular Filt Rate > 60.0 mL/min (>60); Glucose 111 mg/dL (80-110); HEMOLYSIS < 15 (0-50); Lipase 47 U/L (23-300); Potassium 4.8 mmol/L (3.4-5.1); Sodium 141 mmol/L (137-145); Total Protein 7.3 g/dL (6.3-8.2)
[2019-07-26] MEDS: DEXAMETHASONE 10 MG/ML VIAL IV (13:53)
[2019-07-26 15:16] LABS: Bacteria Urine None Seen
[2019-07-26 15:23] LABS: Culture Indicated Urine Cult Not Indicated; Mucus Urine 1+ (Negative); RBC Urine 1-5/HPF (0-5/HPF); Squamous Epithelial Cell Urine 1-5 /HPF (0-5/HPF); WBC Urine 0-1/HPF (0-5/HPF)
[2019-07-26] MEDS: MORPHINE 2 MG/ML INJ IV (16:27)
--- NOTE | 2019-07-26 17:39 | PC.NURSE ---
Pt ambultated to bathroom w/family. Wheelchaired back to room from bathroom.
[2019-07-26] MEDS: levETIRAcetam 1,000 MG in SODIUM CHLORIDE 0.9% 100 ML 440 ML IV (18:12)
--- NOTE | 2019-07-26 18:24 | CM.SWNOTE ---
Discharge Planning/Care Management SNACK FOODS MIXER OPERATOR - Sba Underwriter Assessment Start: 07/26/19 18:05 Freq: Status: Active Protocol: Document 07/26/19 18:06 DPL (Rec: 07/26/19 18:24 DPL [id number]) SNACK FOODS MIXER OPERATOR/Sba Underwriter Assessment Start date 07/26/19 Visit Start Time 05:45 Visit End Time 06:30 Total time Care Management spent on 45 patient visit-in minutes Presenting Problem Pt presents to the ED with increasing mentation changes, changes in gait/speech and worsening headaches over the last 2-3 weeks. He is accompanied by both his daughters and . Support System(s) Pt resides in [place] with his , one of his daughter' s is an Ortho physician here from out of town. School/Work Retired Orientation (Person/Place/Time) Pt is oriented X3. Affect Pleasant, calm, cooperative. Thought Content - Specify/Describe Congruent, appropriate. Obsessions, Delusions, Hallucinations Thought Processes (Zjoxkqb-Bofxyswj-Axce Logical/coherent Gwcntqcf-Lieqcmfx-Lwnrntyffl- Vypjyezcdmcezx-Dswcvjv-Hujcozepoyke- Thought Blocking) Speech (Veqmwz-Pxvp-Nwatqst-Rapid-Soft- Normal, although family report Loud-Pressured) that he has needed to be more deliberate in speaking, is having delays in word processing. Motor (Fdzcdz-Hqccsaesr-Zalo-Other) Slow Insight (Present-Partially Present- Present, partially impaired at Impaired) times. Judgement (Intact-Impaired) Intact Impulse Control (Adequate-Impaired) Intact Memory (Lcebwoiyz-Woyysf-Njrvcy, Beginning to demonstrate Impaired-Intact) impairment. Concentration (Intact-Impaired) Impaired Attention (Intact-Impaired) Intact Behavior (Appropriate-Inappropriate) Appropriate Suicidal Ideation (Plan) No Homicidal Ideation (Plan) No Intervention SNACK FOODS MIXER OPERATOR provided information about the process of referral and care coordination with the [facility] cancer care center and Oncology, assisted with insurance questions and options to collaborate with larger hospitals in [place] while getting his cancer care here in his community. RA Plan Family will plan to d/c home tonight, will return to the ED should his symptoms worsen. ED provider attempted to have him transferred to [facility], however they didn't have beds available. ED provider did consult with Dr. Britton from [facility] Oncology re: next steps for family re: surgical and treatment evaluations.
[2019-07-26] MEDS: ONDANSETRON 4 MG ODT PREPACK 1 BOTTLE MISC (18:46)
[2019-07-26] MEDS: HYDROCODONE/ACET 5/325 PREPACK 1 BOTTLE MISC (18:46)
== END 2019-07-26 17:00 | disposition home or self-care (01) ==
PROVIDERS: Emergency Provider Emergency Medicine; PCP Student in an Organized Health Care Education/Training Program
DX: G93.89 Other specified disorders of brain (principal); G93.6 Cerebral edema
CPT/HCPCS: 36415; 70450; 70553; 80053; 81003; 81015; 83690; 85025; 85610; 85730; 96361; 96374; 96375; 96376; 99284; A9579; J1100; J1953; J2270; J2405

== ENCOUNTER → 2019-08-19 06:25 | Outpatient (CLI) | payer OTHER, SELFPAY ==
--- NOTE | 2019-08-19 06:26 | DI.MRI.S_ITS ---
PROCEDURE: MR HEAD/BRAIN WO CON INDICATIONS: Re-assess cerebral edema, s/p shunt placement. Req by onc TECHNIQUE: Noncontrast axial T1 spin echo, axial T2 fast spin echo, sagittal and axial FLAIR, coronal T2 fast spin echo, axial gradient echo, axial diffusion and ADC through the brain. COMPARISON: [facility], MR, MR HEAD/BRAIN WO/W CON, 07/26/2019, 14:55. [facility], CT, CT HEAD/BRAIN WO CON, 07/26/2019, 12:33. FINDINGS: Image quality: Excellent. CSF Spaces: Basal cisterns are patent. No extra-axial fluid collections. Ventricles are unchanged in size and shape, with stable mild ventriculomegaly and a right-sided ventriculostomy catheter has been placed into the right lateral ventricle, with its tip not penetrating into the left lateral ventricle. This is best seen on series 9 image 14.. Brain: No new intracranial masses or hemorrhage. Perry/white matter interface is normal except in the area of vasogenic edema related to the large posterior genuine corpus callosum mass crossing the midline, where vasogenic edema has increased. Brainstem appears normal. Diffusion-weighted images demonstrate no acute ischemic insult. No chronic ischemic insults. Normal intravascular flow voids are present. The mass lesion involving the genuine region of the corpus callosum has enlarged. On prior MR scanning 07/26/19 maximal AP and craniocaudad dimensions were 2.8 x 3.0 cm, and currently those same dimensions are 3.5 x 3.2 cm. The transverse dimension previously was 3.9 cm and currently is 5.2 cm. Mild increased vasogenic edema is present in the adjacent deep white matter. Skull and face: Calvarium has normal marrow signal. Orbits appear normal. Sinuses: Sinuses and mastoids are clear. IMPRESSION: 1. Mild but definite interval enlargement of the malignant-appearing mass lesion involving the genu region of the orbits callosum, crossing the midline. Mild increased vasogenic edema immediately adjacent. 2. Stable mild ventriculomegaly, interval placement of a ventriculostomy catheter from a right-sided approach extending into the right lateral ventricle, but not penetrating the midline into the left lateral ventricle. The ventriculostomy catheter tip abuts and deviates the midline falx between the ventricles slightly leftward. Dictated by: Jonas Mahoney M.D. on 08/19/2019 at 9:20 Approved by: Jonas Mahoney M.D. on 08/19/2019 at 9:29
== END ==
PROVIDERS: PCP Student in an Organized Health Care Education/Training Program; Visit Provider Student in an Organized Health Care Education/Training Program
DX: C71.9 Malignant neoplasm of brain, unspecified (principal); G93.6 Cerebral edema; G93.89 Other specified disorders of brain
CPT/HCPCS: 70551

== ENCOUNTER → 2019-08-20 10:14 | Outpatient (CLI) | payer OTHER, SELFPAY ==
[2019-08-20 11:04] LABS: Alanine Aminotransferase 30 IU/L (<50); Albumin 4.1 g/dL (3.5-5.0); Albumin Globulin Ratio 1.3 (1.0-2.8); Alkaline Phosphatase 78 U/L (38-126); Aspartate Aminotransferase 23 IU/L (17-59); BUN Creatinine Ratio 23.8 (6-22); Bilirubin Total 0.5 mg/dL (0.2-1.3); Blood Urea Nitrogen 19 mg/dL (9-20); Calcium 9.7 mg/dL (8.4-10.2); Carbon Dioxide 33 mmol/L (22-32); Chloride 100 mmol/L (98-107); Estimated Glomerular Filt Rate > 60.0 mL/min (>60); Globulin 3.2 g/dL (1.7-4.1); Glucose 112 mg/dL (80-110); HEMOLYSIS < 15 (0-50); Potassium 5.1 mmol/L (3.4-5.1); Sodium 139 mmol/L (137-145); Total Protein 7.3 g/dL (6.3-8.2)
== END ==
PROVIDERS: PCP Student in an Organized Health Care Education/Training Program
DX: C71.9 Malignant neoplasm of brain, unspecified (principal)
CPT/HCPCS: 36415; 80053

== ENCOUNTER → 2019-08-27 10:47 | Outpatient (CLI) | payer OTHER, SELFPAY ==
[2019-08-29 16:07] LABS: Mitogen-NIL 6.39 IU/mL; NIL 0.16 IU/mL; QuantiFERON TB NEGATIVE (Negative); TB1-NIL < 0.01 IU/mL; TB2-NIL < 0.01 IU/mL
== END ==
PROVIDERS: PCP Student in an Organized Health Care Education/Training Program; Visit Provider Student in an Organized Health Care Education/Training Program
DX: C71.9 Malignant neoplasm of brain, unspecified (principal); D89.9 Disorder involving the immune mechanism, unspecified
CPT/HCPCS: 36415; 86480

== ENCOUNTER 2019-10-04 14:30 | Outpatient (RCR) | payer OTHER, SELFPAY ==
--- NOTE | 2019-09-02 17:30 | PT.OIE ---
Current Diagnoses Malignant neoplasm of brain, unspecified (09/02/19) Other abnormalities of gait and mobility (09/02/19) Past Medical History (Last Reviewed 07/26/19 @ 21:20 by NARENDRA Doll) Colon polyps (Chronic) Hypertension (Chronic) Seasonal allergies (Chronic) Tinnitus (Chronic) Visit Care Team Role Provider Type Marlon Minor MD Primary Care Provider Physician Specialty: Internal Medicine Address: [address] [place] [address], [address], [facility] Email: [email or web address] Attending Provider Specialty: Address: Phone: Fax: Email: Physical Therapy Initial Evaluation PT-OP-A Visit Information Start: 08/26/19 09:00 Freq: Status: Active Protocol: Document 09/02/19 13:36 LRN (Rec: 09/02/19 14:23 LRN [id number]) Out-Patient Physical Therapy Visit Information Visit Information Visit Type Initial Evaluation Visit Start Time 13:36 Visit Stop Time 14:23 Total Visit Minutes 47 Visit Number 1 Number of COMIC ARTIST Visits 0 Evaluation Information Evaluation Date 09/02/19 Precautions Precautions Currently undergoing chemotherapy for Glioblastoma, posterior midline brain mass, Brain Biopsy - end of Jul, ~ with subsequent Ventriculoperitoneal (FIRE PROTECTION FABRICATOR) Shunt - 08/05/19, Intermittent dizziness, mostly orthostatic. HTN, TAI's. PT-OP-B Current Condition Start: 08/26/19 09:00 Freq: Status: Active Protocol: Document 09/02/19 13:36 LRN (Rec: 09/02/19 14:23 LRN [id number]) Current Condition History of Current Condition Onset Date 07/26/19 Current Complaints Variable decrease in mobility, gait, ataxia, balance. History of Current Condition Pt and daughter ( orthopedic resident in [place] to be present for 6 weeks) were in attendance with the pt, volunteering much of the pt's information. Daughter states currently the main issue is with mobility, gait, ataxia, and balance. His abilities are variable on a daily basis. DA states sometimes he can't stand well, and ability on stairs is variable. She notes core weakness and that he demonstrates some L side neglect, veering towards the left with gait. Denies any visual disturbance. He naps throughout the day. states the pt has fallen once due to LOB. DA states pt's tumor is in the R ventricle with a small lesion in the posterior aspect, midline in the splenium in the posterior part of corpus collosum. Pt resides in a two level home but lives on one level. He has 4 stairs to enter, two sets of steps (2 steps x2), one set with railing & one set without. Pt currently walks independently in the home using the jackson or a cane for support. Family states pt has used the cane since Jul and is not sure about usage. 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 Prior Treatments and Tests FIRE PROTECTION FABRICATOR Shunt placed 08/05/19. Two weeks of chemotherapy, 5 days a week for a 6 week program. Developmental History Developmental History Pt with symptoms of TAI's, and stumbling that increased and severe headaches, initially thought were migraines. Pt was diagnosed with Glioblastoma 07/26/19. R handed. Treatment Goals Patient/Caregiver Goals Pt is not sure what his goals should be and asks for suggestions. Daughter's goals for her father is to improve his strengthen, mobility, balance and gait to work towards maximizing his independent level of function. Prior Functional Status Baseline Function- ADL's Independent Baseline Function- Mobility Independent Baseline Function- Gait Independent without use of assistive device. Baseline Function- Recreation/Hobbies Prior fitness 10-20 mile hikes and 20 mile bike rides. Baseline Function- Other Has had an old L hip injury with slight change in balance previously. Independent feeding. Current Functional Impairments (Reported) Functional Limitations- ADL's Stiffness, spasticity and tremor of legs, and sometimes hands; therefore decreased transfers, gait, and standing ability. Fine motor control of hands is decreased, therefore dressing difficulties (putting things on). Balance deficits in sitting and standing. Pt tends to lean backwards in sitting but is able to maintain his balance. Functional Limitations- Mobility/Gait Ambulates with use of a wide based cane with supervision. Ataxic gait, variable in nature depending on the day and his fatigue level. Ambulates 30' from bedroom to bathroom or bedroom to bath holding/grabbing onto objects. Functional Limitations- Other Space recognition difficulties . Decreased endurance. Pt fatigued after ~25 minutes of therapy, mostly done in sitting. Personal Factors Other Personal Factors That May Effect Spouse had a brain tumor with Therapy/Recovery residual expressive, word finding problems. Dizziness with sit to stand Controlled high blood pressure . FIRE PROTECTION FABRICATOR shunt PT-OP-C Subjective Start: 08/26/19 09:00 Freq: Status: Active Protocol: Document 09/02/19 13:36 LRN (Rec: 09/02/19 18:33 LRN [id number]) Patient Questionnaires ABC- Activity Specific Balance Confidence Scale ABC Score 8.1285 ABC Functional Impairment 80 to <100% Impaired (Score 1- 20) Other Questionnaire Name and Score Dizziness Questionnaire: Pt answered no to all but 1 question regarding dizziness. Pt notes sometimes has problem with difficulty getting in/out of bed. PT-OP-D Balance Start: 08/26/19 09:00 Freq: Status: Active Protocol: Document 09/02/19 13:36 LRN (Rec: 09/03/19 18:28 LRN [id number]) OP-PT Balance Assessment Standing Balance Static Standing Balance Ability Poor Device Used Tripod cane Standing Balance Comments Pt did not feel safe standing with eyes closed and close supervision. Balance Tests Single Limb Standing Single Limb- Right 0 Single Limb- Left 0 Herrera Fall Scale Copyright Permission PT-OP-G Mobility & Gait Start: 08/26/19 09:00 Freq: Status: Active Protocol: Document 09/02/19 13:36 LRN (Rec: 09/02/19 18:33 LRN [id number]) OP Gait Assessment Gait Gait Assistance Required: Standby Assistance Distance (Feet) 50 Able to Maintain Weight Bearing Status Yes During Gait Assistive Devices Assistive Device Tripod Cane/Hurry Cane Gait Deviations General Gait Pattern Ataxic,Decreased Stride Length ,Festinating Factors Limiting Gait Function Factors Limiting Gait Function Decreased Activity Tolerance, Difficulty Following Directions,Incoordination,Poor Balance PT-OP-H Neuro Start: 08/26/19 09:00 Freq: Status: Active Protocol: Document 09/02/19 13:36 LRN (Rec: 09/02/19 18:33 LRN [id number]) Coordination Evaluation Lower Extremity Tests Right Heel on Lynn Test Moderate Impairment Foot Tapping Test Moderate Impairment Left Foot Tapping Test Severe Impairment PT-OP-J Posture/Palpation/Skin Start: 08/26/19 09:00 Freq: Status: Active Protocol: Document 09/02/19 13:36 LRN (Rec: 09/02/19 18:33 LRN [id number]) Posture Evaluation Comments Posture Comments In standing the pt required supervision. He shows good posture except he tends to weight bear more on the RLE. PT-OP-K Range of Motion Start: 08/26/19 09:00 Freq: Status: Active Protocol: Document 09/02/19 13:36 LRN (Rec: 09/02/19 18:33 LRN [id number]) Lumbar Spine Range of Motion Lumbar Spine Active Testing Position Sitting Comments Functional. Deferred formal assessment due to lack of time . Pt required much one step commands to mobilize. He was not able to follow 2 step commands. PT-OP-M Strength Start: 08/26/19 09:00 Freq: Status: Active Protocol: Document 09/02/19 13:36 LRN (Rec: 09/02/19 18:33 LRN [id number]) Trunk Strength Trunk Manual Muscle Testing Testing Position Sitting Flexion 4 Good Extension 4 Good Rotation Left 5 Normal Rotation Right 4- Good- Lateral Flexion Left 3+ Fair+ Lateral Flexion Right 3+ Fair+ Core Stabilization Pt would tend to lean backwards in sitting but was able to maintain balance. Comments Extra time taken to assess due to pt difficulty in following directions. Hip Strength Hip Manual Muscle Testing Right Comments WNL - extra time taken to assess due to pt difficulty in following directions. Left Comments WNL - extra time taken to assess due to pt difficulty in following directions. Knee Strength Knee Manual Muscle Testing Right Comments WNL - extra time taken to assess due to pt difficulty in following directions. Left Comments WNL - extra time taken to assess due to pt difficulty in following directions. Ankle/Foot Strength Ankle and Foot Manual Muscle Testing Right Comments WNL - extra time taken to assess due to pt difficulty in following directions. Left Comments WNL - extra time taken to assess due to pt difficulty in following directions. PT-OP-Q Treatments Start: 08/26/19 09:00 Freq: Status: Active Protocol: Document 09/02/19 13:36 LRN (Rec: 09/02/19 18:33 LRN [id number]) Self-Care/Home Management Treatment Education Patient Education Home Exercise Program Activities Self-Care/Home Management Activities I/S pt/daughter/ in home exercises: Coordination: Sliding heel up lynn, bilaterally Balance: Reaching to the sides. Sitting balance: Cuing front chest and working on pt awareness of positioning. PT-OP-T Assessment and Plan Start: 08/26/19 09:00 Freq: Status: Active Protocol: Document 09/02/19 13:36 LRN (Rec: 09/02/19 18:33 LRN [id number]) Physical Therapy Assessment Rehab Potential Rehabilitation Potential Fair Evaluation Complexity Number of Personal Factors/Comorbidities 3 or More Number of Body Systems Impaired 4 or More Clinical Presentation at Evaluation Evolving Impairments Impairments Activity Tolerance,Balance, Coordination,Gait,ROM,Strength ,Transfers Goals Five Impairment Decreased safety with gait requiring use of tripod cane. Mcfp Goal (LTG) Pt will be able to ambulate with SPC or without assistive device showing improved stability and safety with gait . LTG Duration 12/31/19 Four Impairment Inconsistent and decreased ability transfer sit <-> stand & chair to chair. Short Term Goal (STG) Pt will be able to independently & consistently transfer 5-10x sit <-> stand without backwards lean for improved safety with independent transfer. STG Duration 11/01/19 Community Development Aide Goal (LTG) Pt will be able to independently transfer chair to chair safely 5-10x for improved safety with independent mobility. LTG Duration 12/31/19 Three Impairment Decreased standing EC, and single leg balance. Short Term Goal (STG) Improve pt's ability to stand with eyes closed to improve safety with standing or gait in low light conditions. STG Duration 11/01/19 Community Development Aide Goal (LTG) Improve SLS to 2-3 sec's bilaterally to improve pt's safety with gait LTG Duration 12/31/19 Two Impairment Decreased core strength and stability. Short Term Goal (STG) Improve core strength in areas of weakness by no less than 1 /2 grade. STG Duration 11/01/19 Mcfp Goal (LTG) Improve core strength with pt able to maintain a safe and upright posture, unsupported in sitting, without fear of falling backwards. LTG Duration 12/31/19 One Impairment Lacks appropriate self care HEP Community Development Aide Goal (LTG) Pt will be independent in a self care HEP. LTG Duration 12/31/19 Assessment Summary Assessment Pt presents with mobility dysfunction resulting from glioblastoma in the brain. His condition of dysfunction is variable due to current ongoing chemotherapy treatments, which is expected to hinder his rehabilitation progress. The pt will benefit from skilled physical therapy to improve overall strength, balance, stability, mobility, gait and function. Physical Therapy Plan Frequency and Duration Frequency of Treatment 2x/Week Plan of Care Start Date 09/02/19 Plan of Care End Date 12/31/19 Therapeutic Interventions Therapeutic Interventions Balance Training,Coordination Training,Gait Training,Home Exercise Program,Manual Therapy,Neuromuscular Re- education,Patient/Caregiver Education,Self-Care/Home Management,Soft Tissue Mobilization,Therapeutic Exercises Modalities Cold Pack/Ice Massage,Hot Packs Next Visit Focus/Plan Next Note Type Treatment Note Next Visit Plan Assess PENNY, DGI, Tinetti, and /or TUG, ROM/mobility, initiate and assess Transfer training, possibly neuro check of feet. Recheck SLS. Initiate coordination program and include family in HEP progression.
--- NOTE | 2019-09-02 17:30 | PT.OPPOC ---
Physical, Occupational & Speech Therapy At [facility] Current Diagnoses Malignant neoplasm of brain, unspecified (09/02/19) Other abnormalities of gait and mobility (09/02/19) Visit Care Team Role Provider Type Marlon Minor MD Primary Care Provider Physician Specialty: Internal Medicine Address: [address] [place] [address], [facility] Email: [email or web address] Attending Provider Specialty: Address: Phone: Fax: Email: Plan Of Care PT-OP-T Assessment and Plan Start: 08/26/19 09:00 Freq: Status: Active Protocol: Document 09/02/19 13:36 LRN (Rec: 09/02/19 18:33 LRN [id number]) Physical Therapy Assessment Rehab Potential Rehabilitation Potential Fair Evaluation Complexity Number of Personal Factors/Comorbidities 3 or More Number of Body Systems Impaired 4 or More Clinical Presentation at Evaluation Evolving Impairments Impairments Activity Tolerance,Balance, Coordination,Gait,ROM,Strength ,Transfers Goals Five Impairment Decreased safety with gait requiring use of tripod cane. Custodial Goal (LTG) Pt will be able to ambulate with SPC or without assistive device showing improved stability and safety with gait . LTG Duration 12/31/19 Four Impairment Inconsistent and decreased ability transfer sit <-> stand & chair to chair. Short Term Goal (STG) Pt will be able to independently & consistently transfer 5-10x sit <-> stand without backwards lean for improved safety with independent transfer. STG Duration 11/01/19 Custodial Goal (LTG) Pt will be able to independently transfer chair to chair safely 5-10x for improved safety with independent mobility. LTG Duration 12/31/19 Three Impairment Decreased standing EC, and single leg balance. Short Term Goal (STG) Improve pt's ability to stand with eyes closed to improve safety with standing or gait in low light conditions. STG Duration 11/01/19 Custodial Goal (LTG) Improve SLS to 2-3 sec's bilaterally to improve pt's safety with gait LTG Duration 12/31/19 Two Impairment Decreased core strength and stability. Short Term Goal (STG) Improve core strength in areas of weakness by no less than 1 /2 grade. STG Duration 11/01/19 Gis Manager Goal (LTG) Improve core strength with pt able to maintain a safe and upright posture, unsupported in sitting, without fear of falling backwards. LTG Duration 12/31/19 One Impairment Lacks appropriate self care HEP Gis Manager Goal (LTG) Pt will be independent in a self care HEP. LTG Duration 12/31/19 Assessment Summary Assessment Pt presents with mobility dysfunction resulting from glioblastoma in the brain. His condition of dysfunction is variable due to current ongoing chemotherapy treatments, which is expected to hinder his rehabilitation progress. The pt will benefit from skilled physical therapy to improve overall strength, balance, stability, mobility, gait and function. Physical Therapy Plan Frequency and Duration Frequency of Treatment 2x/Week Plan of Care Start Date 09/02/19 Plan of Care End Date 12/31/19 Therapeutic Interventions Therapeutic Interventions Balance Training,Coordination Training,Gait Training,Home Exercise Program,Manual Therapy,Neuromuscular Re- education,Patient/Caregiver Education,Self-Care/Home Management,Soft Tissue Mobilization,Therapeutic Exercises Modalities Cold Pack/Ice Massage,Hot Packs Next Visit Focus/Plan Next Note Type Treatment Note Next Visit Plan Assess PENNY, DGI, Tinetti, and /or TUG, ROM/mobility, initiate and assess Transfer training, possibly neuro check of feet. Recheck SLS. Initiate coordination program and include family in HEP progression. Plan of Care Dates Plan of Care Start Date 09/02/19 Plan of Care End Date 12/31/19 Electronically Signed by: Sonia Leonardo, PT 09/03/19 4215 Please Sign and Return: I have reviewed this Plan of Care and certify that the skilled therapy services above are required to meet the patient?s needs. Physician Signature Date Printed Name and Credentials Clinical Instructor Signature Printed Name and Credentials
--- NOTE | 2019-10-02 17:14 | PT.OTN ---
Current Diagnoses Malignant neoplasm of brain, unspecified (10/02/19) Other abnormalities of gait and mobility (10/02/19) Physical Therapy Treatment Note PT-OP-A Visit Information Start: 08/26/19 09:00 Freq: Status: Active Protocol: Document 10/02/19 16:15 DCW (Rec: 10/02/19 17:14 DCW [id number]) Out-Patient Physical Therapy Visit Information Visit Information Visit Type Treatment Note Visit Start Time 16:15 Visit Stop Time 17:00 Total Visit Minutes 45 Visit Number 2 Number of TRIMMING CASER Visits 0 Evaluation Information Evaluation Date 09/02/19 Precautions Precautions Currently undergoing chemotherapy for Glioblastoma, posterior midline brain mass, Brain Biopsy - end of Jul, ~ with subsequent Ventriculoperitoneal (CONTENT ENGINEER) Shunt - 08/05/19, Intermittent dizziness, mostly orthostatic. HTN, TAI's. PT-OP-B Current Condition Start: 08/26/19 09:00 Freq: Status: Active Protocol: Document 09/02/19 13:36 LRN (Rec: 09/02/19 14:23 LRN [id number]) Current Condition History of Current Condition Onset Date 07/26/19 Current Complaints Variable decrease in mobility, gait, ataxia, balance. History of Current Condition Pt and daughter ( orthopedic resident in [place] to be present for 6 weeks) were in attendance with the pt, volunteering much of the pt's information. Daughter states currently the main issue is with mobility, gait, ataxia, and balance. His abilities are variable on a daily basis. DA states sometimes he can't stand well, and ability on stairs is variable. She notes core weakness and that he demonstrates some L side neglect, veering towards the left with gait. Denies any visual disturbance. He naps throughout the day. states the pt has fallen once due to LOB. DA states pt's tumor is in the R ventricle with a small lesion in the posterior aspect, midline in the splenium in the posterior part of corpus collosum. Pt resides in a two level home but lives on one level. He has 4 stairs to enter, two sets of steps (2 steps x2), one set with railing & one set without. Pt currently walks independently in the home using the jackson or a cane for support. Family states pt has used the cane since Jul and is not sure about usage. 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 Prior Treatments and Tests CONTENT ENGINEER Shunt placed 08/05/19. Two weeks of chemotherapy, 5 days a week for a 6 week program. Developmental History Developmental History Pt with symptoms of TAI's, and stumbling that increased and severe headaches, initially thought were migraines. Pt was diagnosed with Glioblastoma 07/26/19. R handed. Treatment Goals Patient/Caregiver Goals Pt is not sure what his goals should be and asks for suggestions. Daughter's goals for her father is to improve his strengthen, mobility, balance and gait to work towards maximizing his independent level of function. Prior Functional Status Baseline Function- ADL's Independent Baseline Function- Mobility Independent Baseline Function- Gait Independent without use of assistive device. Baseline Function- Recreation/Hobbies Prior fitness 10-20 mile hikes and 20 mile bike rides. Baseline Function- Other Has had an old L hip injury with slight change in balance previously. Independent feeding. Current Functional Impairments (Reported) Functional Limitations- ADL's Stiffness, spasticity and tremor of legs, and sometimes hands; therefore decreased transfers, gait, and standing ability. Fine motor control of hands is decreased, therefore dressing difficulties (putting things on). Balance deficits in sitting and standing. Pt tends to lean backwards in sitting but is able to maintain his balance. Functional Limitations- Mobility/Gait Ambulates with use of a wide based cane with supervision. Ataxic gait, variable in nature depending on the day and his fatigue level. Ambulates 30' from bedroom to bathroom or bedroom to bath holding/grabbing onto objects. Functional Limitations- Other Space recognition difficulties . Decreased endurance. Pt fatigued after ~25 minutes of therapy, mostly done in sitting. Personal Factors Other Personal Factors That May Effect Spouse had a brain tumor with Therapy/Recovery residual expressive, word finding problems. Dizziness with sit to stand Controlled high blood pressure . CONTENT ENGINEER shunt PT-OP-C Subjective Start: 08/26/19 09:00 Freq: Status: Active Protocol: Document 10/02/19 16:15 DCW (Rec: 10/02/19 17:14 DCW [id number]) OP-PT Subjective Patient Comments Patient Comments Pt reports that his balance and strength are concerns, but his biggest complaint is that his low back tends to tighten up a lot. PT-OP-D Balance Start: 08/26/19 09:00 Freq: Status: Active Protocol: Document 09/02/19 13:36 LRN (Rec: 09/03/19 18:28 LRN [id number]) OP-PT Balance Assessment Standing Balance Static Standing Balance Ability Poor Device Used Tripod cane Standing Balance Comments Pt did not feel safe standing with eyes closed and close supervision. Balance Tests Single Limb Standing Single Limb- Right 0 Single Limb- Left 0 Herrera Fall Scale Copyright Permission PT-OP-G Mobility & Gait Start: 08/26/19 09:00 Freq: Status: Active Protocol: Document 09/02/19 13:36 LRN (Rec: 09/02/19 18:33 LRN [id number]) OP Gait Assessment Gait Gait Assistance Required: Standby Assistance Distance (Feet) 50 Able to Maintain Weight Bearing Status Yes During Gait Assistive Devices Assistive Device Tripod Cane/Hurry Cane Gait Deviations General Gait Pattern Ataxic,Decreased Stride Length ,Festinating Factors Limiting Gait Function Factors Limiting Gait Function Decreased Activity Tolerance, Difficulty Following Directions,Incoordination,Poor Balance PT-OP-H Neuro Start: 08/26/19 09:00 Freq: Status: Active Protocol: Document 09/02/19 13:36 LRN (Rec: 09/02/19 18:33 LRN [id number]) Coordination Evaluation Lower Extremity Tests Right Heel on Lynn Test Moderate Impairment Foot Tapping Test Moderate Impairment Left Foot Tapping Test Severe Impairment PT-OP-J Posture/Palpation/Skin Start: 08/26/19 09:00 Freq: Status: Active Protocol: Document 09/02/19 13:36 LRN (Rec: 09/02/19 18:33 LRN [id number]) Posture Evaluation Comments Posture Comments In standing the pt required supervision. He shows good posture except he tends to weight bear more on the RLE. PT-OP-K Range of Motion Start: 08/26/19 09:00 Freq: Status: Active Protocol: Document 09/02/19 13:36 LRN (Rec: 09/02/19 18:33 LRN [id number]) Lumbar Spine Range of Motion Lumbar Spine Active Testing Position Sitting Comments Functional. Deferred formal assessment due to lack of time . Pt required much one step commands to mobilize. He was not able to follow 2 step commands. PT-OP-M Strength Start: 08/26/19 09:00 Freq: Status: Active Protocol: Document 09/02/19 13:36 LRN (Rec: 09/02/19 18:33 LRN [id number]) Trunk Strength Trunk Manual Muscle Testing Testing Position Sitting Flexion 4 Good Extension 4 Good Rotation Left 5 Normal Rotation Right 4- Good- Lateral Flexion Left 3+ Fair+ Lateral Flexion Right 3+ Fair+ Core Stabilization Pt would tend to lean backwards in sitting but was able to maintain balance. Comments Extra time taken to assess due to pt difficulty in following directions. Hip Strength Hip Manual Muscle Testing Right Comments WNL - extra time taken to assess due to pt difficulty in following directions. Left Comments WNL - extra time taken to assess due to pt difficulty in following directions. Knee Strength Knee Manual Muscle Testing Right Comments WNL - extra time taken to assess due to pt difficulty in following directions. Left Comments WNL - extra time taken to assess due to pt difficulty in following directions. Ankle/Foot Strength Ankle and Foot Manual Muscle Testing Right Comments WNL - extra time taken to assess due to pt difficulty in following directions. Left Comments WNL - extra time taken to assess due to pt difficulty in following directions. PT-OP-Q Treatments Start: 08/26/19 09:00 Freq: Status: Active Protocol: Document 10/02/19 16:15 DCW (Rec: 10/02/19 17:14 DCW [id number]) Gym Equipment Shuttle Balance Red Details Wide MREISSA, Staggered Stance /c UE assist Therapeutic Exercises Supine Exercises 1 Supine Exercise Name Low Trunk Rotation Comments HEP Sidelying Exercises 1 Sidelying Exercise Name Open Book Comments HEP Sitting Exercises 2 Sitting Exercise Name Lateral trunk flexion stretch Comments HEP 1 Sitting Exercise Name Seated trunk flexion stretch Comments HEP Self-Care/Home Management Treatment Education Patient Education Home Exercise Program PT-OP-T Assessment and Plan Start: 08/26/19 09:00 Freq: Status: Active Protocol: Document 10/02/19 16:15 DCW (Rec: 10/02/19 17:14 DCW [id number]) Physical Therapy Assessment Impairments Impairments Activity Tolerance,Balance, Coordination,Gait,ROM,Strength ,Transfers Other Concerns Fall Risk yes, per Epperson (42/56) and DGI (17/24) scores Goals Five Impairment Decreased safety with gait requiring use of tripod cane. Half-Way Goal (LTG) Pt will be able to ambulate with SPC or without assistive device showing improved stability and safety with gait . LTG Duration 12/31/19 Four Impairment Inconsistent and decreased ability transfer sit <-> stand & chair to chair. Short Term Goal (STG) Pt will be able to independently & consistently transfer 5-10x sit <-> stand without backwards lean for improved safety with independent transfer. STG Duration 11/01/19 Half-Way Goal (LTG) Pt will be able to independently transfer chair to chair safely 5-10x for improved safety with independent mobility. LTG Duration 12/31/19 Three Impairment Decreased standing EC, and single leg balance. Short Term Goal (STG) Improve pt's ability to stand with eyes closed to improve safety with standing or gait in low light conditions. STG Duration 11/01/19 Overhead Worker Goal (LTG) Improve SLS to 2-3 sec's bilaterally to improve pt's safety with gait LTG Duration 12/31/19 Two Impairment Decreased core strength and stability. Short Term Goal (STG) Improve core strength in areas of weakness by no less than 1 /2 grade. STG Duration 11/01/19 Overhead Worker Goal (LTG) Improve core strength with pt able to maintain a safe and upright posture, unsupported in sitting, without fear of falling backwards. LTG Duration 12/31/19 One Impairment Lacks appropriate self care HEP Half-Way Goal (LTG) Pt will be independent in a self care HEP. LTG Duration 12/31/19 Assessment Summary Assessment Pt fatigued fairly easily today between continued balance testing and attempting to use the Shuttle Balance. Pt and worried that last session, the entire time was spent in treatment room performing testing, and no time was spent on actual treatment. Assured them that testing and assessment needed to be done prior to treatment, but the majority of PT sessions should now focus more on treatment. Pt's Epperson and DGI testing showed mild increased falls risk, with scores of 42/56 and 17/24, respectively. Physical Therapy Plan Frequency and Duration Frequency of Treatment 2x/Week Plan of Care Start Date 09/02/19 Plan of Care End Date 12/31/19 Therapeutic Interventions Therapeutic Interventions Balance Training,Coordination Training,Gait Training,Home Exercise Program,Manual Therapy,Neuromuscular Re- education,Patient/Caregiver Education,Self-Care/Home Management,Soft Tissue Mobilization,Therapeutic Exercises Modalities Cold Pack/Ice Massage,Hot Packs Next Visit Focus/Plan Next Visit Plan Progress balance training, assess effectiveness of lumbar stretching, introduce LE strengthening
--- NOTE | 2019-10-02 17:18 | PT.OTN ---
Current Diagnoses Malignant neoplasm of brain, unspecified (10/02/19) Other abnormalities of gait and mobility (10/02/19) Physical Therapy Treatment Note PT-OP-A Visit Information Start: 08/26/19 09:00 Freq: Status: Active Protocol: Document 10/02/19 16:15 DCW (Rec: 10/02/19 17:14 DCW [id number]) Out-Patient Physical Therapy Visit Information Visit Information Visit Type Treatment Note Visit Start Time 16:15 Visit Stop Time 17:00 Total Visit Minutes 45 Visit Number 2 Number of ELECTRONIC CONSOLE DISPLAY OPERATOR Visits 0 Evaluation Information Evaluation Date 09/02/19 Precautions Precautions Currently undergoing chemotherapy for Glioblastoma, posterior midline brain mass, Brain Biopsy - end of Jul, ~ with subsequent Ventriculoperitoneal (STREET OPENINGS INSPECTOR) Shunt - 08/05/19, Intermittent dizziness, mostly orthostatic. HTN, TAI's. PT-OP-B Current Condition Start: 08/26/19 09:00 Freq: Status: Active Protocol: Document 09/02/19 13:36 LRN (Rec: 09/02/19 14:23 LRN [id number]) Current Condition History of Current Condition Onset Date 07/26/19 Current Complaints Variable decrease in mobility, gait, ataxia, balance. History of Current Condition Pt and daughter ( orthopedic resident in [place] to be present for 6 weeks) were in attendance with the pt, volunteering much of the pt's information. Daughter states currently the main issue is with mobility, gait, ataxia, and balance. His abilities are variable on a daily basis. DA states sometimes he can't stand well, and ability on stairs is variable. She notes core weakness and that he demonstrates some L side neglect, veering towards the left with gait. Denies any visual disturbance. He naps throughout the day. states the pt has fallen once due to LOB. DA states pt's tumor is in the R ventricle with a small lesion in the posterior aspect, midline in the splenium in the posterior part of corpus collosum. Pt resides in a two level home but lives on one level. He has 4 stairs to enter, two sets of steps (2 steps x2), one set with railing & one set without. Pt currently walks independently in the home using the jackson or a cane for support. Family states pt has used the cane since Jul and is not sure about usage. 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 Prior Treatments and Tests STREET OPENINGS INSPECTOR Shunt placed 08/05/19. Two weeks of chemotherapy, 5 days a week for a 6 week program. Developmental History Developmental History Pt with symptoms of TAI's, and stumbling that increased and severe headaches, initially thought were migraines. Pt was diagnosed with Glioblastoma 07/26/19. R handed. Treatment Goals Patient/Caregiver Goals Pt is not sure what his goals should be and asks for suggestions. Daughter's goals for her father is to improve his strengthen, mobility, balance and gait to work towards maximizing his independent level of function. Prior Functional Status Baseline Function- ADL's Independent Baseline Function- Mobility Independent Baseline Function- Gait Independent without use of assistive device. Baseline Function- Recreation/Hobbies Prior fitness 10-20 mile hikes and 20 mile bike rides. Baseline Function- Other Has had an old L hip injury with slight change in balance previously. Independent feeding. Current Functional Impairments (Reported) Functional Limitations- ADL's Stiffness, spasticity and tremor of legs, and sometimes hands; therefore decreased transfers, gait, and standing ability. Fine motor control of hands is decreased, therefore dressing difficulties (putting things on). Balance deficits in sitting and standing. Pt tends to lean backwards in sitting but is able to maintain his balance. Functional Limitations- Mobility/Gait Ambulates with use of a wide based cane with supervision. Ataxic gait, variable in nature depending on the day and his fatigue level. Ambulates 30' from bedroom to bathroom or bedroom to bath holding/grabbing onto objects. Functional Limitations- Other Space recognition difficulties . Decreased endurance. Pt fatigued after ~25 minutes of therapy, mostly done in sitting. Personal Factors Other Personal Factors That May Effect Spouse had a brain tumor with Therapy/Recovery residual expressive, word finding problems. Dizziness with sit to stand Controlled high blood pressure . STREET OPENINGS INSPECTOR shunt PT-OP-C Subjective Start: 08/26/19 09:00 Freq: Status: Active Protocol: Document 10/02/19 16:15 DCW (Rec: 10/02/19 17:14 DCW [id number]) OP-PT Subjective Patient Comments Patient Comments Pt reports that his balance and strength are concerns, but his biggest complaint is that his low back tends to tighten up a lot. PT-OP-D Balance Start: 08/26/19 09:00 Freq: Status: Active Protocol: Document 10/02/19 16:15 DCW (Rec: 10/02/19 17:17 DCW [id number]) Balance Tests Epperson Balance Test Epperson Balance Test Score 42/56 Epperson Impairment Rating 20 to 39% Impaired (Score 34- 44) Epperson Balance Assessment Evaluation Sitting to Standing Ability Independent w/out Hands Unsupported Stance Supervision- 2 minutes Sitting Unsupported, Feet on Floor Safely- 2 minutes Standing to Sitting Ability Safely, Minimal Hand Use Transfer Ability Safely, Minimal Hand Use Unsupported Stance- Eyes Closed Supervision, 10 seconds Unsupported Stance- Eyes Open Supervision to maintain Reaching Forward Standing Safely, 2 inches Pick- Up Object From Floor Independent/Safe Look Behind Shoulder - Standing Shifts Weight Unilateral Turning 360 Degrees Turns slowly, but safely Unsupported Stance, Alternating Feet on 4 Steps w/Supervision Stair Unsupported Tandem Stance Small Step- 30 seconds Unilateral Leg Stance Lifts Leg/Holds > 3 secs Total Score Epperson Total Score (out of 56 points) 42 Epperson Impairment Rating 20 to 39% Impaired (Score 34- 44) PT-OP-E Functional Tests Start: 08/26/19 09:00 Freq: Status: Active Protocol: Document 10/02/19 16:15 DCW (Rec: 10/02/19 17:18 DCW [id number]) Functional Tests Dynamic Gait Index (DGI) Score 17/24 DGI Impairment Rating 20 to <40% Impaired (Score 15- 19) PT-OP-G Mobility & Gait Start: 08/26/19 09:00 Freq: Status: Active Protocol: Document 09/02/19 13:36 LRN (Rec: 09/02/19 18:33 LRN [id number]) OP Gait Assessment Gait Gait Assistance Required: Standby Assistance Distance (Feet) 50 Able to Maintain Weight Bearing Status Yes During Gait Assistive Devices Assistive Device Tripod Cane/Hurry Cane Gait Deviations General Gait Pattern Ataxic,Decreased Stride Length ,Festinating Factors Limiting Gait Function Factors Limiting Gait Function Decreased Activity Tolerance, Difficulty Following Directions,Incoordination,Poor Balance PT-OP-H Neuro Start: 08/26/19 09:00 Freq: Status: Active Protocol: Document 09/02/19 13:36 LRN (Rec: 09/02/19 18:33 LRN [id number]) Coordination Evaluation Lower Extremity Tests Right Heel on Lynn Test Moderate Impairment Foot Tapping Test Moderate Impairment Left Foot Tapping Test Severe Impairment PT-OP-J Posture/Palpation/Skin Start: 08/26/19 09:00 Freq: Status: Active Protocol: Document 09/02/19 13:36 LRN (Rec: 09/02/19 18:33 LRN [id number]) Posture Evaluation Comments Posture Comments In standing the pt required supervision. He shows good posture except he tends to weight bear more on the RLE. PT-OP-K Range of Motion Start: 08/26/19 09:00 Freq: Status: Active Protocol: Document 09/02/19 13:36 LRN (Rec: 09/02/19 18:33 LRN [id number]) Lumbar Spine Range of Motion Lumbar Spine Active Testing Position Sitting Comments Functional. Deferred formal assessment due to lack of time . Pt required much one step commands to mobilize. He was not able to follow 2 step commands. PT-OP-M Strength Start: 08/26/19 09:00 Freq: Status: Active Protocol: Document 09/02/19 13:36 LRN (Rec: 09/02/19 18:33 LRN [id number]) Trunk Strength Trunk Manual Muscle Testing Testing Position Sitting Flexion 4 Good Extension 4 Good Rotation Left 5 Normal Rotation Right 4- Good- Lateral Flexion Left 3+ Fair+ Lateral Flexion Right 3+ Fair+ Core Stabilization Pt would tend to lean backwards in sitting but was able to maintain balance. Comments Extra time taken to assess due to pt difficulty in following directions. Hip Strength Hip Manual Muscle Testing Right Comments WNL - extra time taken to assess due to pt difficulty in following directions. Left Comments WNL - extra time taken to assess due to pt difficulty in following directions. Knee Strength Knee Manual Muscle Testing Right Comments WNL - extra time taken to assess due to pt difficulty in following directions. Left Comments WNL - extra time taken to assess due to pt difficulty in following directions. Ankle/Foot Strength Ankle and Foot Manual Muscle Testing Right Comments WNL - extra time taken to assess due to pt difficulty in following directions. Left Comments WNL - extra time taken to assess due to pt difficulty in following directions. PT-OP-Q Treatments Start: 08/26/19 09:00 Freq: Status: Active Protocol: Document 10/02/19 16:15 DCW (Rec: 10/02/19 17:14 DCW [id number]) Gym Equipment Shuttle Balance Red Details Wide MERISSA, Staggered Stance /c UE assist Therapeutic Exercises Supine Exercises 1 Supine Exercise Name Low Trunk Rotation Comments HEP Sidelying Exercises 1 Sidelying Exercise Name Open Book Comments HEP Sitting Exercises 2 Sitting Exercise Name Lateral trunk flexion stretch Comments HEP 1 Sitting Exercise Name Seated trunk flexion stretch Comments HEP Self-Care/Home Management Treatment Education Patient Education Home Exercise Program PT-OP-T Assessment and Plan Start: 08/26/19 09:00 Freq: Status: Active Protocol: Document 10/02/19 16:15 DCW (Rec: 10/02/19 17:14 DCW [id number]) Physical Therapy Assessment Impairments Impairments Activity Tolerance,Balance, Coordination,Gait,ROM,Strength ,Transfers Other Concerns Fall Risk yes, per Epperson (42/56) and DGI () scores Goals Five Impairment Decreased safety with gait requiring use of tripod cane. Penitentiary Goal (LTG) Pt will be able to ambulate with SPC or without assistive device showing improved stability and safety with gait . LTG Duration 12/31/19 Four Impairment Inconsistent and decreased ability transfer sit <-> stand & chair to chair. Short Term Goal (STG) Pt will be able to independently & consistently transfer 5-10x sit <-> stand without backwards lean for improved safety with independent transfer. STG Duration 11/01/19 Trim Attacher Goal (LTG) Pt will be able to independently transfer chair to chair safely 5-10x for improved safety with independent mobility. LTG Duration 12/31/19 Three Impairment Decreased standing EC, and single leg balance. Short Term Goal (STG) Improve pt's ability to stand with eyes closed to improve safety with standing or gait in low light conditions. STG Duration 11/01/19 Trim Attacher Goal (LTG) Improve SLS to 2-3 sec's bilaterally to improve pt's safety with gait LTG Duration 12/31/19 Two Impairment Decreased core strength and stability. Short Term Goal (STG) Improve core strength in areas of weakness by no less than 1 /2 grade. STG Duration 11/01/19 Penitentiary Goal (LTG) Improve core strength with pt able to maintain a safe and upright posture, unsupported in sitting, without fear of falling backwards. LTG Duration 12/31/19 One Impairment Lacks appropriate self care HEP Trim Attacher Goal (LTG) Pt will be independent in a self care HEP. LTG Duration 12/31/19 Assessment Summary Assessment Pt fatigued fairly easily today between continued balance testing and attempting to use the Shuttle Balance. Pt and worried that last session, the entire time was spent in treatment room performing testing, and no time was spent on actual treatment. Assured them that testing and assessment needed to be done prior to treatment, but the majority of PT sessions should now focus more on treatment. Pt's Epperson and DGI testing showed mild increased falls risk, with scores of 42/56 and 17/24, respectively. Physical Therapy Plan Frequency and Duration Frequency of Treatment 2x/Week Plan of Care Start Date 09/02/19 Plan of Care End Date 12/31/19 Therapeutic Interventions Therapeutic Interventions Balance Training,Coordination Training,Gait Training,Home Exercise Program,Manual Therapy,Neuromuscular Re- education,Patient/Caregiver Education,Self-Care/Home Management,Soft Tissue Mobilization,Therapeutic Exercises Modalities Cold Pack/Ice Massage,Hot Packs Next Visit Focus/Plan Next Visit Plan Progress balance training, assess effectiveness of lumbar stretching, introduce LE strengthening
--- NOTE | 2019-10-04 16:17 | PT.OTN ---
Current Diagnoses Malignant neoplasm of brain, unspecified (10/04/19) Other abnormalities of gait and mobility (10/04/19) Physical Therapy Treatment Note PT-OP-A Visit Information Start: 08/26/19 09:00 Freq: Status: Active Protocol: Document 10/04/19 14:30 DCW (Rec: 10/04/19 16:17 DCW [id number]) Out-Patient Physical Therapy Visit Information Visit Information Visit Type Treatment Note Visit Start Time 14:30 Visit Stop Time 15:15 Total Visit Minutes 45 Visit Number 3 Number of PERSONAL ASSISTANT Visits 0 Evaluation Information Evaluation Date 09/02/19 Precautions Precautions Currently undergoing chemotherapy for Glioblastoma, posterior midline brain mass, Brain Biopsy - end of Jul, ~ with subsequent Ventriculoperitoneal ([employer]IATE) Shunt - 08/05/19, Intermittent dizziness, mostly orthostatic. HTN, TAI's. PT-OP-B Current Condition Start: 08/26/19 09:00 Freq: Status: Active Protocol: Document 09/02/19 13:36 LRN (Rec: 09/02/19 14:23 LRN [id number]) Current Condition History of Current Condition Onset Date 07/26/19 Current Complaints Variable decrease in mobility, gait, ataxia, balance. History of Current Condition Pt and daughter ( orthopedic resident in [place] to be present for 6 weeks) were in attendance with the pt, volunteering much of the pt's information. Daughter states currently the main issue is with mobility, gait, ataxia, and balance. His abilities are variable on a daily basis. DA states sometimes he can't stand well, and ability on stairs is variable. She notes core weakness and that he demonstrates some L side neglect, veering towards the left with gait. Denies any visual disturbance. He naps throughout the day. states the pt has fallen once due to LOB. DA states pt's tumor is in the R ventricle with a small lesion in the posterior aspect, midline in the splenium in the posterior part of corpus collosum. Pt resides in a two level home but lives on one level. He has 4 stairs to enter, two sets of steps (2 steps x2), one set with railing & one set without. Pt currently walks independently in the home using the jackson or a cane for support. Family states pt has used the cane since Jul and is not sure about usage. 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 Two weeks of chemotherapy, 5 days a week for a 6 week program. Developmental History Developmental History Pt with symptoms of TAI's, and stumbling that increased and severe headaches, initially thought were migraines. Pt was diagnosed with Glioblastoma 07/26/19. R handed. Treatment Goals Patient/Caregiver Goals Pt is not sure what his goals should be and asks for suggestions. Daughter's goals for her father is to improve his strengthen, mobility, balance and gait to work towards maximizing his independent level of function. Prior Functional Status Baseline Function- ADL's Independent Baseline Function- Mobility Independent Baseline Function- Gait Independent without use of assistive device. Baseline Function- Recreation/Hobbies Prior fitness 10-20 mile hikes and 20 mile bike rides. Baseline Function- Other Has had an old L hip injury with slight change in balance previously. Independent feeding. Current Functional Impairments (Reported) Functional Limitations- ADL's Stiffness, spasticity and tremor of legs, and sometimes hands; therefore decreased transfers, gait, and standing ability. Fine motor control of hands is decreased, therefore dressing difficulties (putting things on). Balance deficits in sitting and standing. Pt tends to lean backwards in sitting but is able to maintain his balance. Functional Limitations- Mobility/Gait Ambulates with use of a wide based cane with supervision. Ataxic gait, variable in nature depending on the day and his fatigue level. Ambulates 30' from bedroom to bathroom or bedroom to bath holding/grabbing onto objects. Functional Limitations- Other Space recognition difficulties . Decreased endurance. Pt fatigued after ~25 minutes of therapy, mostly done in sitting. Personal Factors Other Personal Factors That May Effect Spouse had a brain tumor with Therapy/Recovery residual expressive, word finding problems. Dizziness with sit to stand Controlled high blood pressure . [employer]ER ASSOCIATE shunt PT-OP-C Subjective Start: 08/26/19 09:00 Freq: Status: Active Protocol: Document 10/04/19 14:30 DCW (Rec: 10/04/19 16:17 DCW [id number]) OP-PT Subjective Patient Comments Patient Comments Pt had final radiation treatment today, so he expects to be a little more tired than usual PT-OP-D Balance Start: 08/26/19 09:00 Freq: Status: Active Protocol: Document 10/02/19 16:15 DCW (Rec: 10/02/19 17:17 DCW [id number]) Balance Tests Epperson Balance Test Epperson Balance Test Score 42/56 Epperson Impairment Rating 20 to 39% Impaired (Score 34- 44) Epperson Balance Assessment Evaluation Sitting to Standing Ability Independent w/out Hands Unsupported Stance Supervision- 2 minutes Sitting Unsupported, Feet on Floor Safely- 2 minutes Standing to Sitting Ability Safely, Minimal Hand Use Transfer Ability Safely, Minimal Hand Use Unsupported Stance- Eyes Closed Supervision, 10 seconds Unsupported Stance- Eyes Open Supervision to maintain Reaching Forward Standing Safely, 2 inches Pick- Up Object From Floor Independent/Safe Look Behind Shoulder - Standing Shifts Weight Unilateral Turning 360 Degrees Turns slowly, but safely Unsupported Stance, Alternating Feet on 4 Steps w/Supervision Stair Unsupported Tandem Stance Small Step- 30 seconds Unilateral Leg Stance Lifts Leg/Holds > 3 secs Total Score Epperson Total Score (out of 56 points) 42 Epperson Impairment Rating 20 to 39% Impaired (Score 34- 44) PT-OP-E Functional Tests Start: 08/26/19 09:00 Freq: Status: Active Protocol: Document 10/02/19 16:15 DCW (Rec: 10/02/19 17:18 DCW [id number]) Functional Tests Dynamic Gait Index (DGI) Score 17/24 DGI Impairment Rating 20 to <40% Impaired (Score 15- 19) PT-OP-G Mobility & Gait Start: 08/26/19 09:00 Freq: Status: Active Protocol: Document 09/02/19 13:36 LRN (Rec: 09/02/19 18:33 LRN [id number]) OP Gait Assessment Gait Gait Assistance Required: Standby Assistance Distance (Feet) 50 Able to Maintain Weight Bearing Status Yes During Gait Assistive Devices Assistive Device Tripod Cane/Hurry Cane Gait Deviations General Gait Pattern Ataxic,Decreased Stride Length ,Festinating Factors Limiting Gait Function Factors Limiting Gait Function Decreased Activity Tolerance, Difficulty Following Directions,Incoordination,Poor Balance PT-OP-H Neuro Start: 08/26/19 09:00 Freq: Status: Active Protocol: Document 09/02/19 13:36 LRN (Rec: 09/02/19 18:33 LRN [id number]) Coordination Evaluation Lower Extremity Tests Right Heel on Lynn Test Moderate Impairment Foot Tapping Test Moderate Impairment Left Foot Tapping Test Severe Impairment PT-OP-J Posture/Palpation/Skin Start: 08/26/19 09:00 Freq: Status: Active Protocol: Document 09/02/19 13:36 LRN (Rec: 09/02/19 18:33 LRN [id number]) Posture Evaluation Comments Posture Comments In standing the pt required supervision. He shows good posture except he tends to weight bear more on the RLE. PT-OP-K Range of Motion Start: 08/26/19 09:00 Freq: Status: Active Protocol: Document 09/02/19 13:36 LRN (Rec: 09/02/19 18:33 LRN [id number]) Lumbar Spine Range of Motion Lumbar Spine Active Testing Position Sitting Comments Functional. Deferred formal assessment due to lack of time . Pt required much one step commands to mobilize. He was not able to follow 2 step commands. PT-OP-M Strength Start: 08/26/19 09:00 Freq: Status: Active Protocol: Document 09/02/19 13:36 LRN (Rec: 09/02/19 18:33 LRN [id number]) Trunk Strength Trunk Manual Muscle Testing Testing Position Sitting Flexion 4 Good Extension 4 Good Rotation Left 5 Normal Rotation Right 4- Good- Lateral Flexion Left 3+ Fair+ Lateral Flexion Right 3+ Fair+ Core Stabilization Pt would tend to lean backwards in sitting but was able to maintain balance. Comments Extra time taken to assess due to pt difficulty in following directions. Hip Strength Hip Manual Muscle Testing Right Comments WNL - extra time taken to assess due to pt difficulty in following directions. Left Comments WNL - extra time taken to assess due to pt difficulty in following directions. Knee Strength Knee Manual Muscle Testing Right Comments WNL - extra time taken to assess due to pt difficulty in following directions. Left Comments WNL - extra time taken to assess due to pt difficulty in following directions. Ankle/Foot Strength Ankle and Foot Manual Muscle Testing Right Comments WNL - extra time taken to assess due to pt difficulty in following directions. Left Comments WNL - extra time taken to assess due to pt difficulty in following directions. PT-OP-Q Treatments Start: 08/26/19 09:00 Freq: Status: Active Protocol: Document 10/04/19 14:30 DCW (Rec: 10/04/19 16:17 DCW [id number]) Cardio Equipment Recumbent Elliptical (Biodex) Duration (Minutes) 3 Resistance 1 Gym Equipment Shuttle Balance Blue Details Wide MERISSA Comments EO/EC, Head Turns Neuro Re-Education Treatment Coordination Activities 5 Details Cone kick over Comments Seated 4 Details Toe tap numbers Comments pt needs to add/subtract in head, tap answer in standing 3 Details Toe tap cones Comments in standing 2 Details Square Steps with turns 1 Details Square steps Speed Metronome at 90 bpm PT-OP-T Assessment and Plan Start: 08/26/19 09:00 Freq: Status: Active Protocol: Document 10/04/19 14:30 DCW (Rec: 10/04/19 16:17 DCW [id number]) Physical Therapy Assessment Impairments Impairments Activity Tolerance,Balance, Coordination,Gait,ROM,Strength ,Transfers Other Concerns Fall Risk yes, per Epperson (42/56) and DGI () scores Goals Five Impairment Decreased safety with gait requiring use of tripod cane. Care Coordination Manager Goal (LTG) Pt will be able to ambulate with SPC or without assistive device showing improved stability and safety with gait . LTG Duration 12/31/19 Four Impairment Inconsistent and decreased ability transfer sit <-> stand & chair to chair. Short Term Goal (STG) Pt will be able to independently & consistently transfer 5-10x sit <-> stand without backwards lean for improved safety with independent transfer. STG Duration 11/01/19 Fdc Goal (LTG) Pt will be able to independently transfer chair to chair safely 5-10x for improved safety with independent mobility. LTG Duration 12/31/19 Three Impairment Decreased standing EC, and single leg balance. Short Term Goal (STG) Improve pt's ability to stand with eyes closed to improve safety with standing or gait in low light conditions. STG Duration 11/01/19 Fdc Goal (LTG) Improve SLS to 2-3 sec's bilaterally to improve pt's safety with gait LTG Duration 12/31/19 Two Impairment Decreased core strength and stability. Short Term Goal (STG) Improve core strength in areas of weakness by no less than 1 /2 grade. STG Duration 11/01/19 Care Coordination Manager Goal (LTG) Improve core strength with pt able to maintain a safe and upright posture, unsupported in sitting, without fear of falling backwards. LTG Duration 12/31/19 One Impairment Lacks appropriate self care HEP Fdc Goal (LTG) Pt will be independent in a self care HEP. LTG Duration 12/31/19 Assessment Summary Assessment Pt tolerated activity with minimal need for rest breaks, despite increased worry due to him having radiation today. Pt was able to perform all activities, and when he began to fatigue near end, he was able to continue with seated exercise. Pt displayed some need for repeated instruction, especially with multi-step instruction. Physical Therapy Plan Frequency and Duration Frequency of Treatment 2x/Week Plan of Care Start Date 09/02/19 Plan of Care End Date 12/31/19 Therapeutic Interventions Therapeutic Interventions Balance Training,Coordination Training,Gait Training,Home Exercise Program,Manual Therapy,Neuromuscular Re- education,Patient/Caregiver Education,Self-Care/Home Management,Soft Tissue Mobilization,Therapeutic Exercises Modalities Cold Pack/Ice Massage,Hot Packs Next Visit Focus/Plan Next Visit Plan Progress balance training, assess effectiveness of lumbar stretching, introduce LE strengthening
--- NOTE | 2019-10-07 16:42 | PT-OP ANOTE ---
Pt did not show up to his appointment on 10/07/19
--- NOTE | 2020-03-12 07:18 | PT.OPDS ---
Current Diagnoses Malignant neoplasm of brain, unspecified (10/04/19) Other abnormalities of gait and mobility (10/04/19) Visit Care Team Role Provider Type Marlon Minor MD Primary Care Provider Physician Specialty: Internal Medicine Address: [address] [place] [address], [address], [place], [address] Email: [email or web address] Attending Provider Specialty: Address: Phone: Fax: Email: Visit Number Visit Number 3 Discharge Summary PT-OP-B Current Condition Start: 08/26/19 09:00 Freq: Status: Active Protocol: Document 09/02/19 13:36 LRN (Rec: 09/02/19 14:23 LRN [id number]) Current Condition History of Current Condition Onset Date 07/26/19 Current Complaints Variable decrease in mobility, gait, ataxia, balance. History of Current Condition Pt and daughter ( orthopedic resident in [place] to be present for 6 weeks) were in attendance with the pt, volunteering much of the pt's information. Daughter states currently the main issue is with mobility, gait, ataxia, and balance. His abilities are variable on a daily basis. DA states sometimes he can't stand well, and ability on stairs is variable. She notes core weakness and that he demonstrates some L side neglect, veering towards the left with gait. Denies any visual disturbance. He naps throughout the day. states the pt has fallen once due to LOB. DA states pt's tumor is in the R ventricle with a small lesion in the posterior aspect, midline in the splenium in the posterior part of corpus collosum. Pt resides in a two level home but lives on one level. He has 4 stairs to enter, two sets of steps (2 steps x2), one set with railing & one set without. Pt currently walks independently in the home using the jackson or a cane for support. Family states pt has used the cane since Jul and is not sure about usage. 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 Two weeks of chemotherapy, 5 days a week for a 6 week program. Developmental History Developmental History Pt with symptoms of TAI's, and stumbling that increased and severe headaches, initially thought were migraines. Pt was diagnosed with Glioblastoma 07/26/19. R handed. Treatment Goals Patient/Caregiver Goals Pt is not sure what his goals should be and asks for suggestions. Daughter's goals for her father is to improve his strengthen, mobility, balance and gait to work towards maximizing his independent level of function. Prior Functional Status Baseline Function- ADL's Independent Baseline Function- Mobility Independent Baseline Function- Gait Independent without use of assistive device. Baseline Function- Recreation/Hobbies Prior fitness 10-20 mile hikes and 20 mile bike rides. Baseline Function- Other Has had an old L hip injury with slight change in balance previously. Independent feeding. Current Functional Impairments (Reported) Functional Limitations- ADL's Stiffness, spasticity and tremor of legs, and sometimes hands; therefore decreased transfers, gait, and standing ability. Fine motor control of hands is decreased, therefore dressing difficulties (putting things on). Balance deficits in sitting and standing. Pt tends to lean backwards in sitting but is able to maintain his balance. Functional Limitations- Mobility/Gait Ambulates with use of a wide based cane with supervision. Ataxic gait, variable in nature depending on the day and his fatigue level. Ambulates 30' from bedroom to bathroom or bedroom to bath holding/grabbing onto objects. Functional Limitations- Other Space recognition difficulties . Decreased endurance. Pt fatigued after ~25 minutes of therapy, mostly done in sitting. Personal Factors Other Personal Factors That May Effect Spouse had a brain tumor with Therapy/Recovery residual expressive, word finding problems. Dizziness with sit to stand Controlled high blood pressure . REGION[employer] SALES ASSOCIATE shunt PT-OP-C Subjective Start: 08/26/19 09:00 Freq: Status: Active Protocol: Document 10/04/19 14:30 DCW (Rec: 10/04/19 16:17 DCW [id number]) OP-PT Subjective Patient Comments Patient Comments Pt had final radiation treatment today, so he expects to be a little more tired than usual PT-OP-D Balance Start: 08/26/19 09:00 Freq: Status: Active Protocol: Document 10/02/19 16:15 DCW (Rec: 10/02/19 17:17 DCW [id number]) Balance Tests Epperson Balance Test Epperson Balance Test Score 42/56 Epperson Impairment Rating 20 to 39% Impaired (Score 34- 44) Epperson Balance Assessment Evaluation Sitting to Standing Ability Independent w/out Hands Unsupported Stance Supervision- 2 minutes Sitting Unsupported, Feet on Floor Safely- 2 minutes Standing to Sitting Ability Safely, Minimal Hand Use Transfer Ability Safely, Minimal Hand Use Unsupported Stance- Eyes Closed Supervision, 10 seconds Unsupported Stance- Eyes Open Supervision to maintain Reaching Forward Standing Safely, 2 inches Pick- Up Object From Floor Independent/Safe Look Behind Shoulder - Standing Shifts Weight Unilateral Turning 360 Degrees Turns slowly, but safely Unsupported Stance, Alternating Feet on 4 Steps w/Supervision Stair Unsupported Tandem Stance Small Step- 30 seconds Unilateral Leg Stance Lifts Leg/Holds > 3 secs Total Score Epperson Total Score (out of 56 points) 42 Epperson Impairment Rating 20 to 39% Impaired (Score 34- 44) PT-OP-E Functional Tests Start: 08/26/19 09:00 Freq: Status: Active Protocol: Document 10/02/19 16:15 DCW (Rec: 10/02/19 17:18 DCW [id number]) Functional Tests Dynamic Gait Index (DGI) Score 17/24 DGI Impairment Rating 20 to <40% Impaired (Score 15- 19) PT-OP-G Mobility & Gait Start: 08/26/19 09:00 Freq: Status: Active Protocol: Document 09/02/19 13:36 LRN (Rec: 09/02/19 18:33 LRN [id number]) OP Gait Assessment Gait Gait Assistance Required: Standby Assistance Distance (Feet) 50 Able to Maintain Weight Bearing Status Yes During Gait Assistive Devices Assistive Device Tripod Cane/Hurry Cane Gait Deviations General Gait Pattern Ataxic,Decreased Stride Length ,Festinating Factors Limiting Gait Function Factors Limiting Gait Function Decreased Activity Tolerance, Difficulty Following Directions,Incoordination,Poor Balance PT-OP-H Neuro Start: 08/26/19 09:00 Freq: Status: Active Protocol: Document 09/02/19 13:36 LRN (Rec: 09/02/19 18:33 LRN [id number]) Coordination Evaluation Lower Extremity Tests Right Heel on Lynn Test Moderate Impairment Foot Tapping Test Moderate Impairment Left Foot Tapping Test Severe Impairment PT-OP-J Posture/Palpation/Skin Start: 08/26/19 09:00 Freq: Status: Active Protocol: Document 09/02/19 13:36 LRN (Rec: 09/02/19 18:33 LRN [id number]) Posture Evaluation Comments Posture Comments In standing the pt required supervision. He shows good posture except he tends to weight bear more on the RLE. PT-OP-K Range of Motion Start: 08/26/19 09:00 Freq: Status: Active Protocol: Document 09/02/19 13:36 LRN (Rec: 09/02/19 18:33 LRN [id number]) Lumbar Spine Range of Motion Lumbar Spine Active Testing Position Sitting Comments Functional. Deferred formal assessment due to lack of time . Pt required much one step commands to mobilize. He was not able to follow 2 step commands. PT-OP-M Strength Start: 08/26/19 09:00 Freq: Status: Active Protocol: Document 09/02/19 13:36 LRN (Rec: 09/02/19 18:33 LRN [id number]) Trunk Strength Trunk Manual Muscle Testing Testing Position Sitting Flexion 4 Good Extension 4 Good Rotation Left 5 Normal Rotation Right 4- Good- Lateral Flexion Left 3+ Fair+ Lateral Flexion Right 3+ Fair+ Core Stabilization Pt would tend to lean backwards in sitting but was able to maintain balance. Comments Extra time taken to assess due to pt difficulty in following directions. Hip Strength Hip Manual Muscle Testing Right Comments WNL - extra time taken to assess due to pt difficulty in following directions. Left Comments WNL - extra time taken to assess due to pt difficulty in following directions. Knee Strength Knee Manual Muscle Testing Right Comments WNL - extra time taken to assess due to pt difficulty in following directions. Left Comments WNL - extra time taken to assess due to pt difficulty in following directions. Ankle/Foot Strength Ankle and Foot Manual Muscle Testing Right Comments WNL - extra time taken to assess due to pt difficulty in following directions. Left Comments WNL - extra time taken to assess due to pt difficulty in following directions. PT-OP-T Assessment and Plan Start: 08/26/19 09:00 Freq: Status: Active Protocol: Document 03/12/20 07:17 MB (Rec: 03/12/20 07:18 MB [id number]) Physical Therapy Plan Discharge Physical Therapy Discharge Reasons No Longer Attending PT Discharge Comments Pt has not been seen since before COVID closure. Clinic has left message to inquire about con't PT and pt has not returned call. Will d/c PT.
== END 2020-03-12 13:18 ==
LOC: PHYS 14:30
PROVIDERS: PCP Student in an Organized Health Care Education/Training Program
DX: C71.9 Malignant neoplasm of brain, unspecified (principal); R26.89 Other abnormalities of gait and mobility
CPT/HCPCS: 97110; 97112; 97535